=== PATIENT | female | born 1940 | race Caucasian/White ===

== ENCOUNTER 2024-03-10 22:34 | Inpatient (IN) | payer OTHER, SELFPAY ==
[2024-03-10 18:15] VITALS: BP 153/89
[2024-03-10 18:16] VITALS: BP 153/89
[2024-03-10 18:23] VITALS: BMI 17.2
[2024-03-10 19:00] VITALS: BP 146/86
--- NOTE | 2024-03-10 19:07 | ED.GENMED ---
History of Present Illness
<Janessa Treadwell MD, Resident - Last Filed: 03/10/24 22:01>
General
Chief Complaint: Fall
Source: patient
Exam Limitations: none
Time Seen by Provider: 03/10/24 18:35
Nursing documentation reviewed up to this point in time: agreed with
History of Present Illness
History of Present Illness:
83yo F with PMH multiple orthopedic surgeries/fractures, RA, COPD, AAA, bradycardia who presents to ED for left leg pain after mechanical fall. While transferring from wheelchair to desk chair, her wheelchair 'slipped out from under her' and she
fell landing on her bottom on tile floor. She is unsure if she hit her head. Not on blood thinners. She was unable to get up, and her caregiver found her on the ground upon arrival to her home. She denies any preceding symptoms including
lightheadedness, dizziness, chest pain, SOB, presyncope. Her only complaint currently is 10/10 pain in proximal left femur. Otherwise in her usual state of health. She lives alone and uses wheelchair and walker.
Past History
<Janessa Treadwell MD, Resident - Last Filed: 03/10/24 22:01>
Past History
ED Past Medical History: Arrthythmia (bradycardia), Cancer (Breast, skin), COPD, Valvular disease (mitral regurgitation, aortic stenosis/regurgitation) and Other (Rheumatoid arthritis, osteoporosis, PNA, AAA, UTI)
ED Past Surgical History: Cholecystectomy, Orthopedic (Bilateral foot reconstruction, hand surgery, knee replacement, R prox femur ORIF), Tonsilectomy and Other (L mastectomy)
Patient has exhibited threatening behavior?: No
Social History
Tobacco: Former smoker
Alcohol: Occasional
Drug: None
Personal:
Living: alone
Family History
Family History: CAD
Review of Systems
<Janessa Treadwell MD, Resident - Last Filed: 03/10/24 22:01>
Review of Systems
Constitutional: Reports no symptoms
EENT: Reports no symptoms
Respiratory: Reports cough (chronic cough, productive in AM); Denies hemoptysis or trouble breathing
Cardiac: Reports no symptoms
ABD/GI: Reports no symptoms; Denies abdominal pain, nausea, vomiting, diarrhea, constipated, bloody stools or black stools
: Reports incontinence (chronic for past 2 years); Denies dysuria
Musculoskeletal: Reports other (12/04 L femur pain); Denies edema
Skin: Reports no symptoms
Neurological: Reports no symptoms; Denies dizzy, headache or weakness
Endocrine: Reports no symptoms
Hematologic/Lymphatic: Reports no symptoms
Psychiatric: Reports no symptoms
Phy Exam
<Janessa Treadwell MD, Resident - Last Filed: 03/10/24 22:01>
General Physical Exam
General Presentation: well appearing and other (appears uncomfortable, no acute distress)
General age: appears stated age
General Skin: warm and dry
General Habitus: cachetic, elderly and frail
General Mental: alert
General Hydration: appears well hydrated
Cardiovascular Exam
Cardiovascular Exam: regular rate/rhythm, no edema, no JVD, normal peripheral pulses (dorsalis pedal pulses intact bilaterally), systolic murmur and other (port at right anterior chest wall nontender, nonerythematous)
Heart Sounds: normal
Pulmonary Exam
Pulmonary Exam: lungs clear, no respiratory distress, no crackles, no wheezing and decreased breath sounds
Oxygen Status: room air
Cough: no cough
Respirations: other (nonlabored breathing)
Gastrointestinal Exam
Gastrointestinal Exam: normal bowel sounds, non tender, soft and non distended
Neurological Exam
Neurological Exam: alert and oriented x3
Musculoskeletal Exam
Musculoskeletal Exam: other (tender to palpation L proximal femur, no palpable/visible deformity or hematoma, exam limited by pain; DP pulses intact bilat; s/p bilateral foot reconstruction surg; hands bilaterally with chronic RA changes)
Skin Exam
Skin Exam: normal color and warm/dry
Psychiatric Exam
Psychiatric Exam: normal mood/affect
Course
<Janessa Treadwell MD, Resident - Last Filed: 03/10/24 22:01>
Orders/Labs/Results
Orders:
Orders
03/10/24 19:05
CR Hip - LT w/wo Pel 2-3 Vw* Urgent
Comment:
Reason For Exam: left hip pain s/p fall
Include a pelvis x-ray?: Yes
03/10/24 19:06
CT Cervical Spine W/o Iv Contr Urgent
Comment:
Reason For Exam: fall with headstike
CT Head W/o Iv Contrast Urgent
Comment:
Reason For Exam: fall with headstike
Morphine Sulfate 4 mg IV NOW STA
03/10/24 20:04
Complete Blood Count/With Diff Urgent
Comprehensive Metabolic Panel Urgent
PTT Urgent
Prothrombin Time Urgent
03/10/24 20:13
Type+Screen Urgent
BBK Wristband Number:
03/10/24 21:15
0.9% Sodium Chloride 1000 ml [Nss] 1,000 ml IV 75 mls/hr
03/10/24 21:48
Morphine Sulfate 2 mg IV NOW STA
Abnormal Lab Results
03/10/24
20:04
WBC 14.7 H 10^3/uL
(4.8-10.8)
MCH 32.8 H pg
(27.0-31.0)
MPV 11.6 H fL
(7.4-10.4)
Abs Immat Gran (auto) 0.1 H 10^3/uL
(0-0.05)
Absolute Neuts (auto) 13.4 H 10^3/uL
(1.4-6.5)
Absolute Lymphs (auto) 0.6 L 10^3/uL
(1.2-3.4)
Neutrophils % 91.3 H %
(42.2-75.2)
Lymphocytes % 4.2 L %
(20.5-51.1)
PT 15.0 H Sec
(11.4-14.6)
APTT 72.7 H Sec
(23.4-35.0)
Sodium 133 L mmol/L
(135-145)
BUN 58 H mg/dl
(7-17)
Creatinine 1.1 H mg/dL
(0.6-1.0)
Glucose 177 H mg/dl
(70-99)
03/10/24 20:04
03/10/24 20:04
Vital Signs
Initial and Last Documented VS:
Initial Vital Signs
BP
153/89
03/10/24 18:15
Last Documented Vital Signs
Temp Pulse Resp BP Pulse Ox
97.5 F 100 16 138/92 99
03/10/24 18:27 03/10/24 18:16 03/10/24 18:16 03/10/24 21:49 03/10/24 21:49
<Oc Navarro MD - Last Filed: 03/10/24 21:49>
Orders/Labs/Results
Orders:
Orders
03/10/24 19:05
CR Hip - LT w/wo Pel 2-3 Vw* Urgent
Comment:
Reason For Exam: left hip pain s/p fall
Include a pelvis x-ray?: Yes
03/10/24 19:06
CT Cervical Spine W/o Iv Contr Urgent
Comment:
Reason For Exam: fall with headstike
CT Head W/o Iv Contrast Urgent
Comment:
Reason For Exam: fall with headstike
Morphine Sulfate 4 mg IV NOW STA
03/10/24 20:04
Complete Blood Count/With Diff Urgent
Comprehensive Metabolic Panel Urgent
PTT Urgent
Prothrombin Time Urgent
03/10/24 20:13
Type+Screen Urgent
BBK Wristband Number:
03/10/24 21:15
0.9% Sodium Chloride 1000 ml [Nss] 1,000 ml IV 75 mls/hr
03/10/24 21:48
Morphine Sulfate 2 mg IV NOW STA
Abnormal Lab Results
03/10/24
20:04
WBC 14.7 H 10^3/uL
(4.8-10.8)
MCH 32.8 H pg
(27.0-31.0)
MPV 11.6 H fL
(7.4-10.4)
Abs Immat Gran (auto) 0.1 H 10^3/uL
(0-0.05)
Absolute Neuts (auto) 13.4 H 10^3/uL
(1.4-6.5)
Absolute Lymphs (auto) 0.6 L 10^3/uL
(1.2-3.4)
Neutrophils % 91.3 H %
(42.2-75.2)
Lymphocytes % 4.2 L %
(20.5-51.1)
PT 15.0 H Sec
(11.4-14.6)
APTT 72.7 H Sec
(23.4-35.0)
Sodium 133 L mmol/L
(135-145)
BUN 58 H mg/dl
(7-17)
Creatinine 1.1 H mg/dL
(0.6-1.0)
Glucose 177 H mg/dl
(70-99)
03/10/24 20:04
03/10/24 20:04
Vital Signs
Initial and Last Documented VS:
Initial Vital Signs
BP
153/89
03/10/24 18:15
Last Documented Vital Signs
Temp Pulse Resp BP Pulse Ox
97.5 F 100 16 138/92 99
03/10/24 18:27 03/10/24 18:16 03/10/24 18:16 03/10/24 21:49 03/10/24 21:49
<Janessa Treadwell MD, Resident - Last Filed: 03/10/24 22:01>
MDM/Problems Addressed
Differential Diagnosis Includes:
L hip dislocation vs fracture s/p mechanical fall
MDM/Problems Addressed:
Will obtain hip xray and head ct given unknown head impact
Will check cbc and bmp
Morphine ordered for pain control; s/p fentanyl 60mcg via EMS en route to ED
<Janessa Treadwell MD, Resident - Last Filed: 03/10/24 22:01>
*Critical Care Note
Total Time (30-74mins, 75-104mins- exclusive of procedures): Not Applicable
<Janessa Treadwell MD, Resident - Last Filed: 03/10/24 22:01>
Update Note
Update Note:
2034: Patient sleeping comfortably after dose of morphine 4mg. On 2L NC, SpO2 94%. CBC with leukocytosis-- suspect reactive given no other si/sx infectious etiology. BMP unremarkable, Cr 1.1 appears to be at patient's baseline. Awaiting imaging.
0: xray showing left hip fracture, head/neck CT negative for acute injury. Will admit-- ortho and hospitalist aware. Updated patient at bedside. Will give additional morphine for pain management.
ED Attending Note
<Janessa Treadwell MD, Resident - Last Filed: 03/10/24 22:01>
-
Portions of this chart may have been created with voice recognition software.� Occasional wrong word or��sound alike� substitutions may have occurred due to the inherent limitations of voice recognition software.
<Oc Navarro MD - Last Filed: 03/10/24 21:49>
ED Attending Note
Patient seen and examined by attending physician: Yes
I performed a history and physical exam of patient and discussed management with resident, I reviewed resident's note and agree with documented findings and plan of care.: Yes
ED Attending Note:
I have seen and evaluated the patient with a [id number] encounter. I have spoken to the resident and involved in the medical history, the physical exam, medical decision making.
Evaluation and management service: agree unless noted differently below.
Results interpretation: agree unless noted differently below.
Focused HPI: 83-year-old female with history as documented presents to the ER for evaluation after a fall. Patient was apparently transferring out of her wheelchair into a regular chair; she says that the wheelchair slid out from underneath her and
she fell onto her left hip. She says she did hit her head (despite triage note to the contrary) but says that she did not lose consciousness. She denies any other injuries aside from significant left hip pain. She is not on any blood thinners.
Denies headache, neck pain, back pain, chest/rib pain, abdominal pain, upper extremity pain.
Physical exam: Awake alert. She is cachectic and frail. Appears uncomfortable. Hypertensive, mildly tachycardic. Head atraumatic. No cervical spine tenderness. No signs of trauma the back or flank and no tenderness of the thoracic or lumbar
spine. Her left lower extremity shortened and externally rotated. She has significant pain with any attempts at moving the left leg. She does have strong distal pulses in the left lower extremity. Rest of extremities are atraumatic. She has no
chest wall tenderness and no abdominal tenderness.
Medical Decision Makin-year-old female presents to the ER for evaluation after a fall onto her left hip while transferring from wheelchair. Injured her left hip, she does report head strike but denies any headache or any other injuries. She
is not on blood thinners. Vitals and exam as above. Her exam is concerning for left hip fracture. Labs sent off including a CBC and a CMP, coags, type and screen. Check x-ray of the hip, CT head and cervical spine. Plan likely for admission.
Control pain.
X-ray reviewed by me shows left hip fracture. Case discussed with orthopedics for consultation. Plan for admission pending CT head. Start on maintenance fluids.
CT head and cervical spine negative for any acute pathology. Clinical reassessment patient having pain once again and will provide additional pain medication. Case discussed with hospitalist for admission.
Discharge Plan
Departure
Patient Disposition: Admit
Date of Disposition: 03/10/24
Time of Disposition: 21:49
Admit to doctor: Paul
Presentation/result/management discussed w/ accepting MD/DO: Hospitalist
Discharge Problem:
Fracture of left hip
Prescriptions:
No Action
cyanocobalamin (vitamin B-12) 1,000 mcg Tablet
1,000 mcg PO DAILY Qty: 0
midodrine 5 mg Tablet
5 mg PO TID@0800,1300,1800 Qty: 0 0RF
biotin 10 mg Tablet
10 mg PO DAILY
Theragen Tablet
1 tab PO DAILY
calcium carbonate-vitamin D3 [Calcium 600 + D(3)] 600 mg-10 mcg (400 unit) Tablet
1 tab PO DAILY
Visbiome 112.5 billion cell Capsule
1 cap PO DAILY
cranberry 450 mg Tablet
450 mg PO DAILY
magnesium oxide 400 mg magnesium Tablet
400 mg PO BID
Referrals:
Eric Arshad MD [Family Provider] -
Interventions
Interventions:
*Risk Screen - Suicide Last Done: 03/10/24 18:16
*General Assessment Last Done: 03/10/24 18:16
*Neglect/Abuse Screening Last Done: 03/10/24 18:16
ED- Fall Risk Assessment Last Done: 03/10/24 20:34
*ED COVID-19 Vaccine History Last Done: 03/10/24 18:27
ED-Musculoskeletal Assessment Last Done: 03/10/24 19:08
ED- Neurological Assessment Last Done: 03/10/24 19:08
Discharge Date and Time
Print Language: HEBREW
[2024-03-10] MEDS: MORPHINE SULFATE 4 MG IV (19:17)
[2024-03-10 20:20] LABS: % Basophils 0.3 % (0-2); % Immature Granulocytes 0.4 % (0-0.5); % Lymphocytes 4.2 % (20.5-51.1); % Monocytes 3.8 % (1.7-9.3); % Neutrophils 91.3 % (42.2-75.2); Absolute Immature Granulocytes 0.1 10^3/uL (0-0.05); Absolute Lymphocytes 0.6 10^3/uL (1.2-3.4); Absolute Monocytes 0.6 10^3/uL (0.1-0.6); Absolute Neutrophils 13.4 10^3/uL (1.4-6.5); Hematocrit 40.5 % (37.0-47.0); Hemoglobin 14.2 g/dL (12.0-16.0); Mean Corp Hgb Conc. 35.1 g/dL (33.0-37.0); Mean Corpuscular Hgb 32.8 pg (27.0-31.0); Mean Corpuscular Volume 93.5 fL (81.0-99.0); Mean Platelet Volume 11.6 fL (7.4-10.4); Nucleated Red Blood Cells % 0 %; Platelet Count 159 10^3/uL (130-400); Red Blood Cell Count 4.33 10^6/uL (4.20-5.40); Red Cell Dist. Width 13.3 % (11.5-14.5); White Blood Cell Count 14.7 10^3/uL (4.8-10.8)
[2024-03-10 20:22] LABS: INR 1.14
[2024-03-10 20:24] LABS: APTT 72.7 Sec (23.4-35.0)
[2024-03-10 20:31] LABS: ALT (SGPT) 20 U/L (0-35); AST (SGOT) 31 U/L (14-36); Albumin 3.5 g/dl (3.5-5.0); Alkaline Phosphatase 86 U/L (38-126); Blood Urea Nitrogen 58 mg/dl (7-17); Carbon Dioxide 25 mmol/L (22-30); Chloride 98 mmol/L (98-107); Estimated Creatinine Clearance 23 ml/min; Glucose 177 mg/dl (70-99); Potassium 4.6 mmol/L (3.5-5.1); Sodium 133 mmol/L (135-145); Total Bilirubin 0.8 mg/dl (0.2-1.3); Total Protein 7.4 g/dl (6.3-8.2); eGFR 49.24
[2024-03-10 21:49] VITALS: BP 138/92
[2024-03-10 22:00] VITALS: BP 113/72
[2024-03-10] MEDS: MORPHINE SULFATE 2 MG IV (22:06)
[2024-03-10] MEDS: NSS 1000 IV (22:06)
--- NOTE | 2024-03-10 22:27 | HPS.HSE ---
Family Physician
-
Family Physician: Eric Arshad
Chief Complaint
-
fall
History of Present Illness
83-year-old female past medical history of mild to moderate aortic stenosis, mild to moderate eccentric aortic regurgitation, abdominal aortic aneurysm, moderate pulmonary hypertension, COPD, rheumatoid arthritis, presenting with left leg pain after
mechanical fall. While transferring from wheelchair to the chair wheelchair slipped out from under her and she fell landing on her bottom. She is unsure if she hit her head. She was unable to get up. She denies any preceding lightheadedness,
dizziness, chest pain, shortness of breath or presyncope. She complains of 10 out of pain in the proximal left femur.
She denies any recent chest pain or shortness of breath or dizziness.
She denies smoking or alcohol use.
Medical History
Past Medical History
Past Medical History: Reports Other ( mild to moderate aortic stenosis, mild to moderate eccentric aortic regurgitation, abdominal aortic aneurysm, moderate pulmonary hypertension, COPD, rheumatoid arthritis)
Past Surgical History: Reports Other (Cholecystectomy, Orthopedic (Bilateral foot reconstruction, hand surgery, knee replacement, R prox femur ORIF), Tonsilectomy and Other (L mastectomy))
Social History
Tobacco: Non-smoker
Alcohol: None
Drug: None
Family History
Family History: Not pertinent
Allergies / Home Medications
Allergies reflects when Allergies were last updated in [facility].
Home Medications with original date entered in [facility]
Allergy/Medication List:
Allergies
Allergy/AdvReac Type Severity Reaction Status Date / Time
No Known Drug Allergies Allergy Unknown Verified 05/30/22 11:03
Home Medications
cyanocobalamin (vitamin B-12) 1,000 mcg tablet 1,000 mcg PO DAILY Supplement ##0 03/14/16
midodrine 5 mg tablet 5 mg PO TID@0800,1300,1800 #0 tabs 06/06/22
Lactobac no.2-Bifidobac no.1-S. thermo 112.5 billion cell capsule (Visbiome) 1 cap PO DAILY 03/10/24
biotin 10 mg tablet 10 mg PO DAILY 03/10/24
calcium 600 mg (as carbonate)-vitamin D3 10 mcg (400 unit) tablet (Calcium 600 + D(3)) 1 tab PO DAILY 03/10/24
cranberry fruit 450 mg tablet (cranberry) 450 mg PO DAILY 03/10/24
magnesium oxide 400 mg PO BID 03/10/24
therapeutic multivitamin 1 tab PO DAILY 03/10/24
Review of Systems
-
History Source: Patient
A 12 point ROS was completed and negative except as noted: Yes
Constitutional: Reports No Symptoms
EENT: Reports No Symptoms
Respiratory: Reports No Symptoms
Cardiac: Reports No Symptoms
Abdomen/GI: Reports No Symptoms
: Reports No Symptoms
Musculoskeletal: Reports No Symptoms
Skin: Reports No Symptoms
Neurological: Reports No Symptoms
Endocrine: Reports No Symptoms
Hematologic/Lymphatic: Reports No Symptoms
Psych: Reports No Symptoms
Physical Exam
Vital Signs
Vital Signs
Temp Pulse Resp BP Pulse Ox
97.5 F 100 16 138/92 99
03/10/24 18:27 03/10/24 18:16 03/10/24 18:16 03/10/24 21:49 03/10/24 21:49
Physical Exam
General: Well Developed, Well Nourished and No Apparent Distress
HEENT: NormoCephalic, Moist mucous membranes and Atraumatic
Respiratory: Clear
Cardiac: S1/S2 and Regular Rhythm; No Murmur or Rub
GI: Soft, Non Tender, Non Distended and Normal Bowel Sounds; No Organomegaly
Rectal: Deferred by Provider
Musculoskeletal: No Clubbing, No Cyanosis and No Edema
Skin: No Rash
Neuro: Nonfocal/grossly intact
Laboratory Results
-
03/10/24 20:04
03/10/24 20:04
Laboratory Results
PT 15.0 Sec (11.4-14.6) H 03/10/24 20:04
INR 1.14 03/10/24 20:04
APTT 72.7 Sec (23.4-35.0) H 03/10/24 20:04
Total Bilirubin 0.8 mg/dl (0.2-1.3) 03/10/24 20:04
AST 31 U/L (14-36) 03/10/24 20:04
ALT 20 U/L (0-35) 03/10/24 20:04
Alkaline Phosphatase 86 U/L (38-126) 03/10/24 20:04
Data Reviewed
-
Lab Data: Labs Reviewed by me
Old Records: Reviewed
Impression/Plan
-
IMPRESSION:
PLAN:
# Ambulatory dysfunction with falls/left hip fracture
-X-ray shows fracture of the distal neck and greater trochanter of the proximal left femur mildly impacted
-CT head, cervical spine negative for acute abnormality
-Tylenol, Dilaudid for pain
-N.p.o. past midnight
-Ortho consulted
-Patient not on any blood thinners
-Mild sinus tachycardia secondary to pain, confirmed with EKG
-Patient appears well compensated without any evidence of heart failure
Mild to moderate aortic stenosis
Mild to moderate eccentric aortic regurgitation
Abdominal aortic aneurysm
Moderate pulmonary hypertension
Orthostatic hypotension
-Continue midodrine
COPD
Rheumatoid arthritis
Full code
DVT prophylaxis�SCDs
N.p.o. past midnight
[2024-03-10 23:00] VITALS: BP 91/67
[2024-03-11] VITALS (18 sets, daily range): BP systolic 79–158; BP diastolic 51–94; BMI 13.8
--- NOTE | 2024-03-11 00:10 | PTCARENOTE ---
Received pt. to 2S from ED via stretcher and pulled over to room bed. Pt. very lethargic, only able to stay awake to answer a question at a time but otherwise oriented, moaning in pain when moved then quickly falls asleep again, even and unlabored
breathing on RA, and VSS. Unable to ask the majority of admission questions at this time due to lethargy, will attempt later. Call light within reach, side rails in place, bed locked and in lowest position.
[2024-03-11 05:06] LABS: % Basophils 0.2 % (0-2); % Immature Granulocytes 0.4 % (0-0.5); % Lymphocytes 9.1 % (20.5-51.1); % Monocytes 7.3 % (1.7-9.3); Absolute Immature Granulocytes 0.1 10^3/uL (0-0.05); Absolute Lymphocytes 1.1 10^3/uL (1.2-3.4); Absolute Monocytes 0.9 10^3/uL (0.1-0.6); Absolute Neutrophils 9.7 10^3/uL (1.4-6.5); Hematocrit 36.5 % (37.0-47.0); Hemoglobin 12.4 g/dL (12.0-16.0); Mean Corpuscular Hgb 31.6 pg (27.0-31.0); Mean Corpuscular Volume 93.1 fL (81.0-99.0); Mean Platelet Volume 10.5 fL (7.4-10.4); Nucleated Red Blood Cells % 0 %; Platelet Count 155 10^3/uL (130-400); Red Blood Cell Count 3.92 10^6/uL (4.20-5.40); Red Cell Dist. Width 13.5 % (11.5-14.5); White Blood Cell Count 11.7 10^3/uL (4.8-10.8)
[2024-03-11 05:35] LABS: ALT (SGPT) 18 U/L (0-35); AST (SGOT) 27 U/L (14-36); Albumin 3.1 g/dl (3.5-5.0); Alkaline Phosphatase 75 U/L (38-126); Blood Urea Nitrogen 61 mg/dl (7-17); Calcium 9.5 mg/dl (8.4-10.2); Carbon Dioxide 25 mmol/L (22-30); Chloride 102 mmol/L (98-107); Estimated Creatinine Clearance 17 ml/min; Glucose 115 mg/dl (70-99); Potassium 5.1 mmol/L (3.5-5.1); Sodium 136 mmol/L (135-145); Total Bilirubin 0.7 mg/dl (0.2-1.3); Total Protein 6.6 g/dl (6.3-8.2); eGFR 44.36
[2024-03-11] MEDS: DILAUDID 0.25 MG IV (06:09)
--- NOTE | 2024-03-11 07:45 | CON.ORTHO ---
Consultation
-
Date/Time Consultation Requested: 03/10/2024
Date/Time Consultation Performed: 03/11/2024
Requesting Provider: Dr. Griggs
Performing Provider: Soraya Craft PA-C, for Dr. Culver
Reason for Consultation: Left hip intertroch fracture
Consultation - Orthopedics
History
HPI: This is an 83 year old female who presented to ED after sustaining a fall onto her left hip. She was attempting to transfer from her wheelchair to her desk chair when she fell directly on her left hip. She was unable to stand and it was
her caregiver who later found her on the ground. X-rays showed a left hip proximal femur fracture. She does have a h/o RA with deformity of her b/l hands. She states she uses both a wheelchair and walker and lives alone in her home. She does
have a caregiver come in. She was somewhat somnolent on exam, so some of her history was obtained through chart review. She reports being comfortable at rest. She denies any prior issues with her right hip surgery or complications with
anesthesia.
PMH: RA, COPD, AAA, bradycardia, breast cancer, skin cancer COPD, valvular disease.
PSH: Cholecystectomy, ORIF right hip, b/l foot reconstruction, hand surgery, knee replacement, left mastectomy, tonsilectomy.
Social history: Denies current tobacco use, occasional alcohol. Lives alone.
Family history: non contributory.
Review of systems: all systems reviewed and negative except for those mentioned in HPI.
Allergies / Home Medications
Allergy/AdvReac Type Severity Reaction Status Date / Time
No Known Drug Allergies Allergy Unknown Verified 05/30/22 11:03
�Medication �Instructions �Recorded
cyanocobalamin (vitamin B-12) 1,000 mcg PO DAILY Supplement ##0 03/14/16
1,000 mcg tablet
midodrine 5 mg tablet 5 mg PO TID@0800,1300,1800 #0 tabs 06/06/22
Lactobac no.2-Bifidobac no.1-S. 1 cap PO DAILY 03/10/24
thermo 112.5 billion cell capsule
(Visbiome)
biotin 10 mg tablet 10 mg PO DAILY 03/10/24
calcium 600 mg (as 1 tab PO DAILY 03/10/24
carbonate)-vitamin D3 10 mcg (400
unit) tablet (Calcium 600 + D(3))
cranberry fruit 450 mg tablet 450 mg PO DAILY 03/10/24
(cranberry)
magnesium oxide 400 mg PO BID 03/10/24
therapeutic multivitamin 1 tab PO DAILY 03/10/24
Vital Signs / Lab Results
Temp Pulse Resp BP Pulse Ox
97.6 F 93 16 139/81 100
03/11/24 07:01 03/11/24 07:01 03/11/24 07:01 03/11/24 07:01 03/11/24 07:01
03/11/24 04:38
03/11/24 04:38
Physical exam:
General: somnolent, but in NAD. Cachetic appearing. AAO x 3.
HEENT: AT/NC, neck supple.
Heart: RRR.
Lungs: Non labored breathing on room air. no audible wheezing.
left hip: TTP over lateral hip/prox femur. ROM not tested. Minimal swelling, no bruising. Leg ER. Calf soft and non tender to palpation. n/v intact.
X-rays fo the left hip on 03/10/24 shows a mildly impacted fracture of the distal neck/greater trochanter of the proximal femur
Assessment / Plan
Assessment: Left hip intertroch fracture.
Plan: Unfortunately Mendez sustained a fracture of her left hip during her fall yesterday. Treatment recommendations were discussed and our recommendation at this time is to proceed with surgical intervention in the form of a left hip ORIF with
gamma nail. Plan will be to proceed to OR today under the direction of Dr. Renner. Risks, benefits, and associated recovery process discussed with patient. Informed consent obtained as well as blood transfuson consent if necessary and placed in
patients chart. She will be NPO and NWB on LLE until surgery. IV abx personnel analyst to OR. Left hip marked as correct surgical site. All questions answered and patient was in agreement with treatment recommendations.
--- NOTE | 2024-03-11 08:41 | W.PN.UPDATE ---
Update Note
Progress Note Update
Patient with left hip intertrochanteric fracture. Patient is known to our practice status post right hip gamma nail on May 31, 2022 under the direction of Dr. Mansoor Contreras. Patient is tentatively for left hip gamma nail later today under the
direction of Dr. Samuel Renner. Surgical site has been marked.
[2024-03-11] MEDS: ProAmatine 5 MG PO ×2 (09:01→18:20)
[2024-03-11] MEDS: MAG-TAB SR 84 MG PO ×2 (09:02→20:23)
[2024-03-11] MEDS: THERAGRAN 1 TABLET PO (09:02)
[2024-03-11] MEDS: VITAMIN B-12 1000 MCG PO (09:02)
[2024-03-11] MEDS: VISBIOME 1 CAP PO (09:02)
[2024-03-11] MEDS: OSCAL 500 + D 500 MG PO (09:03)
[2024-03-11 09:36] LABS: Troponin I < 0.012 ng/ml
--- NOTE | 2024-03-11 10:36 | CON.CAR ---
Addendum entered and electronically signed by Carlos Monge MD 03/11/24 12:16:
84 yo female with mild/moderate AR and , mildly dilated ascending aorta is admitted following a mechanical fall and hip fracture. She denies any history of CP, SOB, syncope, edema. Exam with RRR, II/ systolic murmur at RUSB, no edema .EKG: NSR,
bifascicular block. Cr 1.2.
She is elevated risk due to age and frailty. Overall, she seems stable from cardiac perspective and can proceed to OR without additional cardiac testing. We will monitor on tele post op.
Original Note:
Consultation
Consultation Request
Date/Time Consultation Requested: 03/11/24 08
Date/Time Consultation Performed: 03/11/24 1030
Requesting Provider: Dr. Zuleta
Performing Provider: Kennedi CHILDS for Dr. Monge
Reason for Consultation: pre-op cardiovascular risk assessment
Medical History
-
Chief Complaint: fall with hip pain
History of Present Illness:
83 y/o female with RA (gets infusions via port), CKD3, ascending aorta dilation (details below), underweight, COPD/former smoker, hx breast CA, mild to moderate , mild to moderate AR, moderate pulmonary hypertension who is here after she fell
moving from her wheelchair to her desk chair. She tells me that her wheelchair slipped. There is left hip pain and she is seen on imaging to have a fracture. She denies any dizziness, CP, SOB, or syncope. EKG shows SR with bifascicular block. Of
note, previously after an orthopedic surgery she had hypotension and has been on midodrine as OP. She is in no distress at the time of my assessment.
Past Medical History
Past Medical History: COPD, Valvular Disease and Other (as above)
Social History
Tobacco: Former Smoker
Family History
Family History: Reviewed & Not Pertinent
Allergies / Home Medications
Allergy/AdvReac Type Severity Reaction Status Date / Time
No Known Drug Allergies Allergy Unknown Verified 05/30/22 11:03
�Medication �Instructions �Recorded �Confirmed �Type
cyanocobalamin (vitamin B-12) 1,000 mcg PO DAILY Supplement ##0 03/14/16 03/10/24 History
1,000 mcg tablet
midodrine 5 mg tablet 5 mg PO TID@0800,1300,1800 #0 tabs 06/06/22 03/10/24 Rx
Lactobac no.2-Bifidobac no.1-S. 1 cap PO DAILY Supplement 03/10/24 03/10/24 History
thermo 112.5 billion cell capsule
(Visbiome)
biotin 10 mg tablet 10 mg PO DAILY Supplement 03/10/24 03/10/24 History
calcium 600 mg (as 1 tab PO DAILY Supplement 03/10/24 03/10/24 History
carbonate)-vitamin D3 10 mcg (400
unit) tablet (Calcium 600 + D(3))
cranberry fruit 450 mg tablet 450 mg PO DAILY Supplement 03/10/24 03/10/24 History
(cranberry)
magnesium oxide 400 mg PO BID Supplement 03/10/24 03/10/24 History
therapeutic multivitamin 1 tab PO DAILY Supplement 03/10/24 03/10/24 History
Review of Systems
-
History Source: Patient
All other systems: Negative unless noted
Musculoskeletal: Other (fall with L hip pain)
Physical Exam
Vital Signs
Temp Pulse Resp BP Pulse Ox
97.6 F 101 16 134/94 100
03/11/24 07:01 03/11/24 08:46 03/11/24 07:01 03/11/24 09:01 03/11/24 07:01
Lab Results
03/11/24 04:38
03/11/24 04:38
Troponin I < 0.012 ng/ml 03/11/24 08:56
Physical Exam
General: Well Developed, No Apparent Distress and Other (underweight)
HEENT: Normocephalic and Anicteric
Respiratory: Clear and Non Labored Respirations
Cardiac: Regular Rhythm and Murmur (II/ systolic)
Musculoskeletal: No Edema
Skin: Warm and Dry
Neuro: AO x 3
Psych: Calm
Impression / Plan
-
Left hip fracture:
-this diagnosis is threat to bodily function
-plan is for left hip ORIF with gamma nail today
-pre-op cardiovascular risk assessment: patient denies any CP, SOB, dizziness, or syncope. She is not volume overloaded. EKG shows bifascicular block. No concerning cardiac symptoms. However, she is at elevated risk for surgery due to age and
deconditioning. Monitor tele, BP's, volume closely post-operatively.
Mild-moderate , AR:
-symptomatically stable
-monitor volume post-op
Ascending aortic dilation:
-has been stable
-continue to monitor as OP
Data Reviewed
-
EKG: Tracing Personally Visualized and interpreted (NSR bifasicular block)
Radiology: Report Reviewed by me (Hip XR: There is fracture of the distal neck and greater trochanter of the proximal left femur, mildly impacted. Gamma nails transfix an old fracture of the proximal right femur. Diffuse osteopenia and osseous
degenerative changes are noted.)
Medical Tests (Nuc Med, Echo etc): Report Reviewed by me (Echo 06/05/22: EF 55%. Mild to moderate aortic stenosis. Mild to moderate eccentric aortic regurgitation. Moderate pulmonary hypertension (PASP 51 mmHG). Dilated aortic root and ascending
aorta. Sinuses of Valsalva is 4.1 cm, S-T Junction is 3.6 cm, Ascending aorta is 4.0 cm. )
Labs: Labs Reviewed by me
[2024-03-11] MEDS: NSS 1000 IV ×2 (11:05→20:39)
--- NOTE | 2024-03-11 12:13 | W.PN.HOSP.TC ---
Addendum entered and electronically signed by Arjun Zuleta MD 03/11/24 16:36:
Correction CKD stage IIIa
Original Note:
Today's Communication/Plan
-
Monitor vital signs see plan
Pain control
Plan for OR today by orthopedics
N.p.o.
Assessment / Plan
Assessment / Plan
General: Well Developed, Well Nourished and No Apparent Distress
HEENT: NormoCephalic, Moist mucous membranes and Atraumatic
Respiratory: Clear
Cardiac: S1/S2 and Regular Rhythm; No Murmur or Rub
GI: Soft, Non Tender, Non Distended and Normal Bowel Sounds
Musculoskeletal: No Edema
Neuro: Nonfocal/grossly intact
Ambulatory dysfunction with falls/left hip fracture
Traumatic fracture secondary to fall
-X-ray shows fracture of the distal neck and greater trochanter of the proximal left femur mildly impacted
-CT head, cervical spine negative for acute abnormality
Pain control
NPO for left hip gamma nail
-Ortho following
-Patient not on any blood thinners
EKG noted with bifascicular block. Cardiology following for risk stratification
-Patient appears well compensated without any evidence of heart failure
CKD stage IV
Monitor
Mild to moderate aortic stenosis
Mild to moderate eccentric aortic regurgitation
Abdominal aortic aneurysm
Moderate pulmonary hypertension
Orthostatic hypotension
-Continue midodrine
COPD
Rheumatoid arthritis
Full code
DVT prophylaxis�SCDs, postop per orthopedic
Anticipated Discharge: 24 - 48 hours
Subjective/Interval History
-
Date of Service: March 11, 2024
has pain
Objective Data
-
Labs:
Laboratory Results
03/11/24
04:38
WBC 11.7 H
Hgb 12.4
Hct 36.5 L
Plt Count 155
Sodium 136
Potassium 5.1
Chloride 102
Carbon Dioxide 25
BUN 61 H
Creatinine 1.2 H
Glucose 115 H
Calcium 9.5
Total Bilirubin 0.7
AST 27
ALT 18
Alkaline Phosphatase 75
Vital Signs:
Vital Signs
Temp Pulse Resp BP Pulse Ox
97.6 F 101 16 134/94 100
03/11/24 07:01 03/11/24 08:46 03/11/24 07:01 03/11/24 09:01 03/11/24 07:01
I&O
03/10/24 03/11/24 03/12/24
06:59 06:59 06:59
Intake Total 525 / 525
Balance 525 / 525
[2024-03-11] MEDS: ProAmatine PO (13:05)
--- NOTE | 2024-03-11 14:25 | CM ---
Met with pt at bedside
Pt reports she lives alone in a 1 story home; 3 steps to enter, FF set-up. Has private care takers daily from 8-12P and 5-9P
Needs assist with ADL's, meal prep, cleaning. Ambulates with RW/has wheel chair
DME - wheel chair, rolling walker, shower chair
SNF - denies past hx
HH - current with [facility]
PCP - Eric Arshad
Pharm - [facility]
Fx left hip - for OR today for repair
PT/OT evals pend post-op
Plan - anticipate SNF vs home with VN when medically stable
--- NOTE | 2024-03-11 18:16 | PTCARENOTE ---
Received patient from PACU via bed around 1800 in stable condition. Patient drowsy but arousable. Left hip dressing intact with scant amount of drainage. Left distal lateral thigh gauze dressing CDI. Patient with +movement +sensation. Patient
reoriented to room. Call chairez in reach.
[2024-03-11] MEDS: PROTONIX 40 MG PO (18:20)
[2024-03-11] MEDS: ASPIRIN 325 MG PO (18:20)
[2024-03-11] MEDS: COLACE 100 MG PO (20:23)
[2024-03-11] MEDS: ANCEF 5 IV (22:44)
[2024-03-12] VITALS (9 sets, daily range): BP systolic 88–137; BP diastolic 62–74; PULSE 80
[2024-03-12] MEDS: ANCEF 5 IV (05:51)
--- NOTE | 2024-03-12 06:55 | W.PN.ORTHO ---
Today's Communication / Plan
-
PT/OT
Weightbearing as tolerated with walker
Aspirin/mechanical devices for DVT prophylactics
Skin clip removal 2 weeks postop
Follow-up orthopedics 1 month postop for x-ray
Discharge to care home facility (possibly VN) once medically stable
Assessment
.
Distal Motor Intact: Yes
Dressing:
Clean, dry and intact.
Plan
.
Surgery / Date: L hip Gamma Nail 03/11 Ritting
DVT Prophylaxis: Aspirin
Activity:
Out of bed.
PT/OT
Discharge Plan: SNF
Subjective
.
.:
Patient resting comfortably.
Vital Signs and Labs
.
Vital Signs and Labs:
Temp Pulse Resp BP Pulse Ox
97.4 F 96 16 88/72 95
03/12/24 03:05 03/12/24 03:05 03/12/24 03:05 03/12/24 03:05 03/12/24 03:05
PT 15.0 Sec (11.4-14.6) H 03/10/24 20:04
INR 1.14 03/10/24 20:04
[2024-03-12 07:07] LABS: Blood Urea Nitrogen 61 mg/dl (7-17); Calcium 8.8 mg/dl (8.4-10.2); Carbon Dioxide 22 mmol/L (22-30); Chloride 104 mmol/L (98-107); Estimated Creatinine Clearance 15 ml/min; Glucose 128 mg/dl (70-99); Potassium 5.2 mmol/L (3.5-5.1); Sodium 135 mmol/L (135-145); eGFR 36.87
[2024-03-12 07:22] LABS: % Basophils 0.1 % (0-2); % Immature Granulocytes 0.5 % (0-0.5); % Monocytes 5.9 % (1.7-9.3); % Neutrophils 84.5 % (42.2-75.2); Absolute Immature Granulocytes 0.1 10^3/uL (0-0.05); Absolute Lymphocytes 0.9 10^3/uL (1.2-3.4); Absolute Monocytes 0.6 10^3/uL (0.1-0.6); Absolute Neutrophils 8.9 10^3/uL (1.4-6.5); Hematocrit 29.1 % (37.0-47.0); Hemoglobin 9.7 g/dL (12.0-16.0); Mean Corp Hgb Conc. 33.3 g/dL (33.0-37.0); Mean Corpuscular Hgb 31.8 pg (27.0-31.0); Mean Corpuscular Volume 95.4 fL (81.0-99.0); Mean Platelet Volume 11.3 fL (7.4-10.4); Nucleated Red Blood Cells % 0 %; Platelet Count 122 10^3/uL (130-400); Red Blood Cell Count 3.05 10^6/uL (4.20-5.40); Red Cell Dist. Width 13.8 % (11.5-14.5); White Blood Cell Count 10.5 10^3/uL (4.8-10.8)
[2024-03-12] MEDS: OSCAL 500 + D 500 MG PO (08:21)
[2024-03-12] MEDS: VITAMIN B-12 1000 MCG PO (08:21)
[2024-03-12] MEDS: COLACE 100 MG PO ×2 (08:21→22:57)
[2024-03-12] MEDS: ASPIRIN 325 MG PO (08:21)
[2024-03-12] MEDS: THERAGRAN 1 TABLET PO (08:21)
[2024-03-12] MEDS: PROTONIX 40 MG PO (08:21)
[2024-03-12] MEDS: MAG-TAB SR 84 MG PO ×2 (08:21→22:57)
[2024-03-12] MEDS: VISBIOME 1 CAP PO (08:23)
[2024-03-12] MEDS: ProAmatine 5 MG PO ×2 (08:23→12:32)
[2024-03-12] MEDS: TYLENOL 650 MG PO (09:18)
[2024-03-12] MEDS: ULTRAM 25 MG PO (11:16)
--- NOTE | 2024-03-12 11:18 | W.PN.HOSP.TC ---
Today's Communication/Plan
-
Monitor vital signs see plan
PT/OT
Pain control
Aspirin
Continue to monitor hemoglobin
Discharge planning
Assessment / Plan
Assessment / Plan
General: Well Developed, Well Nourished and No Apparent Distress
HEENT: NormoCephalic, Moist mucous membranes and Atraumatic
Respiratory: Clear
Cardiac: S1/S2 and Regular Rhythm; No Murmur or Rub
GI: Soft, Non Tender, Non Distended and Normal Bowel Sounds
Musculoskeletal: No Edema
Neuro: Nonfocal/grossly intact
Ambulatory dysfunction with falls/left hip fracture
Traumatic fracture secondary to fall
-X-ray shows fracture of the distal neck and greater trochanter of the proximal left femur mildly impacted
-CT head, cervical spine negative for acute abnormality
Pain control
s/p left hip gamma nail
-Ortho following
Aspirin for DVT prophylaxis per Ortho
EKG noted with bifascicular block. Cardiology following for risk stratification
-Patient appears well compensated without any evidence of heart failure
CKD stage 3
baseline appears around 1.2-1.3
Monitor
Bladder scan
Anemia likely multifactorial secondary to anemia of chronic disease and acute blood loss anemia secondary to fracture and surgery
Patient also got fluids so some could be dilutional
Continue to monitor
Thrombocytopenia
Monitor
Mild to moderate aortic stenosis
Mild to moderate eccentric aortic regurgitation
Abdominal aortic aneurysm
Moderate pulmonary hypertension
Orthostatic hypotension
-Continue midodrine
COPD
Rheumatoid arthritis
Full code
DVT prophylaxis�SCDs, postop per orthopedic
PT/OT
Anticipated Discharge: Within 24 hours
Subjective/Interval History
-
Date of Service: March 12, 2024
denies nausea
Objective Data
-
Labs:
Laboratory Results
03/12/24 03/12/24
05:58 05:59
WBC 10.5
Hgb 9.7 L D
Hct 29.1 L
Plt Count 122 L D
Sodium 135
Potassium 5.2 H
Chloride 104
Carbon Dioxide 22
BUN 61 H
Creatinine 1.4 H
Glucose 128 H
Calcium 8.8
Vital Signs:
Vital Signs
Temp Pulse Resp BP Pulse Ox
97.4 F 82 16 101/63 94
03/12/24 07:10 03/12/24 07:10 03/12/24 07:10 03/12/24 08:23 03/12/24 07:10
I&O
03/11/24 03/12/24 03/13/24
06:59 06:59 06:59
Intake Total 525 / 525 340 / 340
Balance 525 / 525 340 / 340
[2024-03-12] MEDS: FLUSH (NSS) 1 FLUSH IV (11:49)
--- NOTE | 2024-03-12 12:39 | CM ---
Chart reviewed and met with pt
PT/OT recs - SNF at discharge
Spoke with pt - requesting referral be sent to [facility]
Updated pts son Tien [phone] and to obtain other choices - given Medicare.gov info as resource for options
Son reports his brother Paramjit will be visiting pt today - will leave PAC list with pt for her and sons to review and f/u with pt
Referral sent in [facility]
Will need auth
Plan - anticipate SNF when medically ready
--- NOTE | 2024-03-12 13:44 | W.PN.CD ---
Today's Communication / Plan
-
stable from cardiac perspective
please call us with additional questions
Impression / Plan
-
Left hip fracture:
-s/p left hip ORIF with gamma nail
-no cardiac complications
Mild-moderate , AR:
-no sxs
-outpatient follow up
Ascending aortic dilation:
-has been stable
-continue to monitor as outpatient
Physical Exam
Vital Signs/Labs
Vital Signs
Temp Pulse Resp BP Pulse Ox
97.3 F 76 18 102/64 99
03/12/24 12:32 03/12/24 12:32 03/12/24 12:32 03/12/24 12:32 03/12/24 12:32
03/11/24 03/12/24 03/13/24
06:59 06:59 06:59
Actual Weight 31.978 kg
03/12/24 05:59
03/12/24 05:58
PT 15.0 Sec (11.4-14.6) H 03/10/24 20:04
INR 1.14 03/10/24 20:04
APTT 72.7 Sec (23.4-35.0) H 03/10/24 20:04
LAB Results
03/11/24
08:56
Troponin I < 0.012
Physical Exam
Constitutional: No acute distress and Comfortable
EENT: Moist mucous membranes
Cardiovascular: Rhythm & rate is regular, Pedal edema is absent, JVD pressure is normal and Systolic murmur present
Respiratory: Respiratory effort normal and Lungs clear to auscul.
Neuro/Psych: AO x 3
Data Reviewed
-
Date of Service: March 12, 2024
EKG: Other (Tele: SR, no arrhythmia)
Labs: Labs Reviewed by me
--- NOTE | 2024-03-12 14:00 | PN.CDI ---
CDI
- -
CDI:
Physician Documentation Request
Admit Date: 03/10/24 22:34
Dear Doctor Song,
Please review the following and provide your response in the progress notes.
Clinical Indicators:
- 03/11 Computer Equipment Installer indicates severe protein calorie malnutrition
- Reported weight loss
- Severe fat loss over orbital
- Severe muscle loss over clavicle
Based on the above information, ASPEN criteria and your assessment, which of the following most accurately represents the patient's nutritional status?
Severe protein calorie malnutrition
Other (please specify)
Hinkley Criteria ([facility] Hospitalist 2017)
2 or more criteria must be present for either
non severe or severe malnutrition
Note that the criteria differs related to the
presence of an acute or chronic illness
Acute Illness Chronic Illness
Energy Intake Non Severe: <75% for >7 days Non Severe: <75% for >1 month
Severe: <50% for >5 days Severe: <75% for >1 month
Weight Loss Non Severe: 1-2% over 1 week Non Severe: 5% over 1 month
5% over 1 month 7.5% over 3 months
7.5% over 3 months 10% over 6 months
1 year N/A 20% over 1 year
Severe: >2% over 1 week Severe: >5% over 1 month
>5% over 1 month >7.5% over 3 months
>7.5% over 3 months >10% over 6 months
1 year N/A >20% over 1 year
Body Fat Non Severe: Mild Decrease Non Severe: Mild Loss
Severe: Moderate Decrease Severe: Severe Loss
Muscle Mass Non Severe: Mild Decrease Non Severe: Mild Loss
Severe: Moderate Decrease Severe: Severe Loss
Fluid Accumulation Non Severe: Mild Accumulation Non Severe: Mild Accumulation
Severe: Moderate to severe Severe: Moderate to severe
accumulation accumulation
Reduced Metal Turner Strength Non Severe: N/A Non Severe: N/A
Severe: Measurably reduced Severe: Measurably reduced
Additional criteria that can be used to Determine if Mild or Moderate Malnutrition (Merck Manual 2018)
Mild Moderate Severe
Albumin gm/dl <3.0 gm/dl <2.5 gm/dl <2.0 gm/dl
Pre Albumin mg/dl <15 gm/dl <10 mg/dl <5.0 mg/dl
BMI <18.5 <17 <16
Use of terms such as suspected, likely, concern for, or probable (associated with a specific diagnosis that is being evaluated, monitored, or treated as if it exists) are acceptable and can be coded in the inpatient setting, when documented at the
time of discharge.
Thank you,
Masoud Salamanca RN
CDI Specialist
Please use your independent medical judgment in providing your response.
[2024-03-12] MEDS: ProAmatine PO ×2 (16:46→19:00)
[2024-03-13 03:21] VITALS: BP 112/75
--- NOTE | 2024-03-13 05:38 | W.PN.ORTHO ---
Today's Communication / Plan
-
PT/OT
Weightbearing as tolerated with walker
Aspirin/mechanical devices for DVT prophylactics
Skin clip removal 2 weeks postop
Follow-up orthopedics 1 month postop for x-ray
Discharge to penitentiary facility (possibly [facility]) once medically stable
Orthopedic surgery will follow peripherally at this time- please reengage with questions/concerns. Dc info UTD
Assessment
.
Distal Motor Intact: Yes
Dressing:
Clean, dry and intact.
Plan
.
Surgery / Date: L hip Gamma Nail 03/11 Ritting
Activity:
Out of bed.
PT/OT
Subjective
.
.:
Patient resting comfortably.
Vital Signs and Labs
.
Vital Signs and Labs:
Temp Pulse Resp BP Pulse Ox
97.7 F 91 18 112/75 96
03/13/24 03:21 03/13/24 03:21 03/13/24 03:21 03/13/24 03:21 03/13/24 03:21
PT 15.0 Sec (11.4-14.6) H 03/10/24 20:04
INR 1.14 03/10/24 20:04
[2024-03-13] MEDS: ULTRAM 25 MG PO (05:53)
[2024-03-13 06:42] LABS: % Basophils 0.1 % (0-2); % Immature Granulocytes 0.4 % (0-0.5); % Lymphocytes 8.4 % (20.5-51.1); % Monocytes 10.3 % (1.7-9.3); % Neutrophils 80.8 % (42.2-75.2); Absolute Immature Granulocytes 0.1 10^3/uL (0-0.05); Absolute Lymphocytes 1.2 10^3/uL (1.2-3.4); Absolute Monocytes 1.5 10^3/uL (0.1-0.6); Absolute Neutrophils 11.9 10^3/uL (1.4-6.5); Hematocrit 28.3 % (37.0-47.0); Hemoglobin 9.5 g/dL (12.0-16.0); Mean Corp Hgb Conc. 33.6 g/dL (33.0-37.0); Mean Corpuscular Hgb 32.1 pg (27.0-31.0); Mean Corpuscular Volume 95.6 fL (81.0-99.0); Mean Platelet Volume 13.2 fL (7.4-10.4); Nucleated Red Blood Cells % 0 %; Platelet Count 122 10^3/uL (130-400); Red Blood Cell Count 2.96 10^6/uL (4.20-5.40); White Blood Cell Count 14.7 10^3/uL (4.8-10.8)
[2024-03-13 07:20] VITALS: BP 107/73
[2024-03-13 07:32] LABS: Blood Urea Nitrogen 67 mg/dl (7-17); Calcium 8.3 mg/dl (8.4-10.2); Carbon Dioxide 21 mmol/L (22-30); Chloride 102 mmol/L (98-107); Estimated Creatinine Clearance 12 ml/min; Glucose 99 mg/dl (70-99); Potassium 5.6 mmol/L (3.5-5.1); Sodium 133 mmol/L (135-145); eGFR 29.21
[2024-03-13] MEDS: THERAGRAN 1 TABLET PO (08:30)
[2024-03-13] MEDS: VITAMIN B-12 1000 MCG PO (08:30)
[2024-03-13] MEDS: ProAmatine 5 MG PO ×3 (08:31→16:12)
[2024-03-13] MEDS: MAG-TAB SR 84 MG PO ×2 (08:31→20:23)
[2024-03-13] MEDS: PROTONIX 40 MG PO (08:31)
[2024-03-13] MEDS: ROXICODONE 2.5 MG PO (08:31)
[2024-03-13] MEDS: OSCAL 500 + D 500 MG PO (08:32)
[2024-03-13] MEDS: VISBIOME 1 CAP PO (08:32)
[2024-03-13] MEDS: COLACE 100 MG PO ×2 (08:32→20:23)
[2024-03-13] MEDS: ASPIRIN 325 MG PO (08:32)
[2024-03-13] MEDS: LOKELMA 10 GRAM PO (08:44)
--- NOTE | 2024-03-13 12:49 | W.PN.HOSP.TC ---
Today's Communication/Plan
-
Monitor vital signs see plan
PT/OT
Pain control
Lokelma, repeat potassium later today
Updated son over the phone
Assessment / Plan
Assessment / Plan
General: Well Developed, Well Nourished and No Apparent Distress
HEENT: NormoCephalic, Moist mucous membranes and Atraumatic
Respiratory: Clear
Cardiac: S1/S2 and Regular Rhythm; No Murmur or Rub
GI: Soft, Non Tender, Non Distended and Normal Bowel Sounds
Musculoskeletal: No Edema
Neuro: Nonfocal/grossly intact
Ambulatory dysfunction with falls/left hip fracture
Traumatic fracture secondary to fall
-X-ray shows fracture of the distal neck and greater trochanter of the proximal left femur mildly impacted
-CT head, cervical spine negative for acute abnormality
Pain control
s/p left hip gamma nail
-Ortho following
Aspirin for DVT prophylaxis per Ortho
EKG noted with bifascicular block. Cardiology following for risk stratification
-Patient appears well compensated without any evidence of heart failure
LENNIE on CKD stage 3
baseline appears around 1.2-1.3; cr now 1.7
Could also be secondary to ATN given recent low blood pressure
Monitor
Bladder scan
Hyperkalemia
Lokelma
Recheck later today
Anemia likely multifactorial secondary to anemia of chronic disease and acute blood loss anemia secondary to fracture and surgery
Patient also got fluids so some could be dilutional
Continue to monitor
Thrombocytopenia
Monitor
Hyponatremia
Monitor
Mild to moderate aortic stenosis
Mild to moderate eccentric aortic regurgitation
Abdominal aortic aneurysm
Moderate pulmonary hypertension
Orthostatic hypotension
-Continue midodrine
Severe protein calorie malnutrition
COPD
Rheumatoid arthritis
Full code
DVT prophylaxis�SCDs, aspirin
PT/OT
I spent a total of 52 minutes with the patient or on the floor. More than 50% of this time involved counseling and coordination of care.
Anticipated Discharge: 24 - 48 hours
Subjective/Interval History
-
Date of Service: March 13, 2024
denies pain
Objective Data
-
Labs:
Laboratory Results
03/13/24 03/13/24
05:19 15:00
WBC 14.7 H
Hgb 9.5 L
Hct 28.3 L
Plt Count 122 L
Sodium 133 L
Potassium 5.6 H Pending
Chloride 102
Carbon Dioxide 21 L
BUN 67 H
Creatinine 1.7 H
Glucose 99
Calcium 8.3 L
Vital Signs:
Vital Signs
Temp Pulse Resp BP Pulse Ox
97.8 F 97 16 107/73 96
03/13/24 07:20 03/13/24 07:20 03/13/24 07:20 03/13/24 07:20 03/13/24 07:20
I&O
03/12/24 03/13/24 03/14/24
06:59 06:59 06:59
Intake Total 340 / 340 480 / 480
Balance 340 / 340 480 / 480
--- NOTE | 2024-03-13 14:14 | CM ---
Chart reviewed. Met with pt
Per pt son will be here to see her today - requesting SNF facilities in the [facility] to review
Given PAC list in [facility] - reports son will assist with choosing additional SNF's. [facility] is 1st choice
Will need auth
Plan - anticipate SNF when medically ready, bed and auth obtained
[2024-03-13 19:00] VITALS: BP 123/73
[2024-03-13 20:29] LABS: Potassium 4.6 mmol/L (3.5-5.1)
[2024-03-13 23:50] VITALS: BP 120/79
[2024-03-14 03:12] VITALS: BP 116/75
[2024-03-14] MEDS: TYLENOL 650 MG PO (06:25)
[2024-03-14 07:10] VITALS: BP 100/61
[2024-03-14 08:45] LABS: % Basophils 0.2 % (0-2); % Eosinophils 0.5 % (0-6); % Immature Granulocytes 0.5 % (0-0.5); % Lymphocytes 13.5 % (20.5-51.1); % Monocytes 11.3 % (1.7-9.3); Absolute Eosinophils 0.1 10^3/uL (0-0.7); Absolute Immature Granulocytes 0.1 10^3/uL (0-0.05); Absolute Lymphocytes 1.5 10^3/uL (1.2-3.4); Absolute Monocytes 1.3 10^3/uL (0.1-0.6); Absolute Neutrophils 8.2 10^3/uL (1.4-6.5); Hematocrit 27.8 % (37.0-47.0); Hemoglobin 9.4 g/dL (12.0-16.0); Mean Corp Hgb Conc. 33.8 g/dL (33.0-37.0); Mean Corpuscular Hgb 32.1 pg (27.0-31.0); Mean Corpuscular Volume 94.9 fL (81.0-99.0); Mean Platelet Volume 11.6 fL (7.4-10.4); Nucleated Red Blood Cells % 0 %; Platelet Count 134 10^3/uL (130-400); Red Blood Cell Count 2.93 10^6/uL (4.20-5.40); Red Cell Dist. Width 14.1 % (11.5-14.5); White Blood Cell Count 11.1 10^3/uL (4.8-10.8)
[2024-03-14 08:58] LABS: Blood Urea Nitrogen 62 mg/dl (7-17); Calcium 8.1 mg/dl (8.4-10.2); Carbon Dioxide 23 mmol/L (22-30); Chloride 102 mmol/L (98-107); Estimated Creatinine Clearance 14 ml/min; Glucose 87 mg/dl (70-99); Potassium 4.3 mmol/L (3.5-5.1); Sodium 134 mmol/L (135-145); eGFR 33.94
[2024-03-14] MEDS: PROTONIX 40 MG PO (09:29)
[2024-03-14] MEDS: VISBIOME 1 CAP PO (09:30)
[2024-03-14] MEDS: ASPIRIN 325 MG PO (09:30)
[2024-03-14] MEDS: VITAMIN B-12 1000 MCG PO (09:30)
[2024-03-14] MEDS: MAG-TAB SR 84 MG PO ×2 (09:30→19:51)
[2024-03-14] MEDS: THERAGRAN 1 TABLET PO (09:30)
[2024-03-14] MEDS: COLACE 100 MG PO ×2 (09:30→19:53)
[2024-03-14] MEDS: OSCAL 500 + D 500 MG PO (09:30)
[2024-03-14] MEDS: ProAmatine 5 MG PO ×3 (09:32→17:05)
[2024-03-14 11:20] VITALS: BP 109/71
[2024-03-14 11:39] VITALS: BP 109/71; PULSE 76; O2SAT 97
--- NOTE | 2024-03-14 11:40 | W.PN.HOSP.TC ---
Today's Communication/Plan
-
Monitor vital signs see plan
Pain control
MiraLAX
PT/OT
Monitor renal function
Discharge planning, needs SNF. software engineering manager aware
Assessment / Plan
Assessment / Plan
General: Well Developed, Well Nourished and No Apparent Distress
HEENT: NormoCephalic, Moist mucous membranes and Atraumatic
Respiratory: Clear
Cardiac: S1/S2 and Regular Rhythm; No Murmur or Rub
GI: Soft, Non Tender, Non Distended and Normal Bowel Sounds
Musculoskeletal: No Edema
Neuro: Nonfocal/grossly intact
Ambulatory dysfunction with falls/left hip fracture
Traumatic fracture secondary to fall
-X-ray shows fracture of the distal neck and greater trochanter of the proximal left femur mildly impacted
-CT head, cervical spine negative for acute abnormality
Pain control
s/p left hip gamma nail
-Ortho following
Aspirin for DVT prophylaxis per Ortho
EKG noted with bifascicular block. Cardiology following for risk stratification
-Patient appears well compensated without any evidence of heart failure
LENNIE on CKD stage 3
baseline appears around 1.2-1.3; cr now 1.5
Could also be secondary to ATN given recent low blood pressure
Monitor
Bladder scan
Hyperkalemia
Status post Lokelma, now improving
Anemia likely multifactorial secondary to anemia of chronic disease and acute blood loss anemia secondary to fracture and surgery
Patient also got fluids so some could be dilutional
Continue to monitor
Thrombocytopenia
Monitor
Hyponatremia
Monitor
Mild to moderate aortic stenosis
Mild to moderate eccentric aortic regurgitation
Abdominal aortic aneurysm
Moderate pulmonary hypertension
Orthostatic hypotension
-Continue midodrine
Severe protein calorie malnutrition
COPD
Rheumatoid arthritis
Full code
DVT prophylaxis�SCDs, aspirin
PT/OT recommending SNF
Anticipated Discharge: Within 24 hours
Subjective/Interval History
-
Date of Service: March 14, 2024
Denies nausea
Objective Data
-
Labs:
Laboratory Results
03/14/24
08:20
WBC 11.1 H
Hgb 9.4 L
Hct 27.8 L
Plt Count 134
Sodium 134 L
Potassium 4.3
Chloride 102
Carbon Dioxide 23
BUN 62 H
Creatinine 1.5 H
Glucose 87
Calcium 8.1 L
Vital Signs:
Vital Signs
Temp Pulse Resp BP Pulse Ox
97.5 F 95 16 109/71 97
03/14/24 11:20 03/14/24 11:20 03/14/24 11:20 03/14/24 11:20 03/14/24 11:20
I&O
03/13/24 03/14/24 03/15/24
06:59 06:59 06:59
Intake Total 480 / 480 720 / 720
Balance 480 / 480 720 / 720
[2024-03-14] MEDS: MIRALAX 17 GRAMS PO (14:21)
--- NOTE | 2024-03-14 14:43 | CM ---
CM reviewed chart and called to patient son. Additional referral sent to [facility] at patient son request, no beds available at [facility] until at least saturday per chart review. CM will continue to follow for discharge planning needs.
Plan; SNF
[2024-03-14 15:19] VITALS: BP 109/69
[2024-03-14] MEDS: SENOKOT 8.6 MG PO (22:11)
[2024-03-14] MEDS: DULCOLAX 10 MG RECTAL (22:30)
[2024-03-14 23:57] VITALS: BP 115/67
[2024-03-15] MEDS: DILAUDID 0.25 MG IV ×2 (00:33→20:21)
[2024-03-15 05:05] LABS: % Basophils 0.2 % (0-2); % Eosinophils 1.6 % (0-6); % Immature Granulocytes 0.4 % (0-0.5); % Lymphocytes 14.8 % (20.5-51.1); % Monocytes 9.7 % (1.7-9.3); % Neutrophils 73.3 % (42.2-75.2); Absolute Eosinophils 0.2 10^3/uL (0-0.7); Absolute Immature Granulocytes 0.1 10^3/uL (0-0.05); Absolute Lymphocytes 1.7 10^3/uL (1.2-3.4); Absolute Monocytes 1.1 10^3/uL (0.1-0.6); Absolute Neutrophils 8.6 10^3/uL (1.4-6.5); Hematocrit 26.7 % (37.0-47.0); Hemoglobin 8.9 g/dL (12.0-16.0); Mean Corp Hgb Conc. 33.3 g/dL (33.0-37.0); Mean Corpuscular Hgb 32.2 pg (27.0-31.0); Mean Corpuscular Volume 96.7 fL (81.0-99.0); Mean Platelet Volume 11.4 fL (7.4-10.4); Nucleated Red Blood Cells % 0 %; Platelet Count 113 10^3/uL (130-400); Red Blood Cell Count 2.76 10^6/uL (4.20-5.40); Red Cell Dist. Width 14.3 % (11.5-14.5); White Blood Cell Count 11.8 10^3/uL (4.8-10.8)
[2024-03-15 05:35] LABS: Blood Urea Nitrogen 56 mg/dl (7-17); Calcium 8.5 mg/dl (8.4-10.2); Carbon Dioxide 23 mmol/L (22-30); Chloride 102 mmol/L (98-107); Estimated Creatinine Clearance 16 ml/min; Glucose 80 mg/dl (70-99); Potassium 4.5 mmol/L (3.5-5.1); Sodium 133 mmol/L (135-145)
[2024-03-15 07:05] VITALS: BP 122/73
[2024-03-15] MEDS: ASPIRIN 325 MG PO (07:39)
[2024-03-15] MEDS: THERAGRAN 1 TABLET PO (07:39)
[2024-03-15] MEDS: VISBIOME 1 CAP PO (07:39)
[2024-03-15] MEDS: COLACE 100 MG PO ×2 (07:40→19:26)
[2024-03-15] MEDS: MAG-TAB SR 84 MG PO ×2 (07:40→19:26)
[2024-03-15] MEDS: VITAMIN B-12 1000 MCG PO (07:40)
[2024-03-15] MEDS: PROTONIX 40 MG PO (07:40)
[2024-03-15] MEDS: OSCAL 500 + D 500 MG PO (07:40)
[2024-03-15] MEDS: MIRALAX 17 GRAMS PO (07:40)
[2024-03-15] MEDS: ProAmatine 5 MG PO ×3 (07:41→16:22)
[2024-03-15 09:49] VITALS: BP 124/80; PULSE 99; O2SAT 97
[2024-03-15] MEDS: ULTRAM 25 MG PO (10:58)
--- NOTE | 2024-03-15 11:45 | W.PN.HOSP.TC ---
Today's Communication/Plan
-
Monitor vital signs see plan
Pain control
Monitor renal function
Awaiting placement
Discussed with family at bedside
Assessment / Plan
Assessment / Plan
General: Well Developed, Well Nourished and No Apparent Distress
HEENT: NormoCephalic, Moist mucous membranes and Atraumatic
Respiratory: Clear
Cardiac: S1/S2 and Regular Rhythm; No Murmur or Rub
GI: Soft, Non Tender, Non Distended and Normal Bowel Sounds
Musculoskeletal: No Edema
Neuro: Nonfocal/grossly intact
Ambulatory dysfunction with falls/left hip fracture
Traumatic fracture secondary to fall
-X-ray shows fracture of the distal neck and greater trochanter of the proximal left femur mildly impacted
-CT head, cervical spine negative for acute abnormality
Pain control
s/p left hip gamma nail
-Ortho following
Aspirin for DVT prophylaxis per Ortho
EKG noted with bifascicular block. Cardiology was following for risk stratification
-Patient appears well compensated without any evidence of heart failure
LENNIE on CKD stage 3
baseline appears around 1.2-1.3; cr now improving
Could also be secondary to ATN given recent low blood pressure
Monitor
Bladder scan
Hyperkalemia
Status post Lokelma, now resolved
Constipation
Improving
Anemia likely multifactorial secondary to anemia of chronic disease and acute blood loss anemia secondary to fracture and surgery
Patient also got fluids so some could be dilutional
Continue to monitor
Thrombocytopenia
Monitor
Hyponatremia
Monitor
Mild to moderate aortic stenosis
Mild to moderate eccentric aortic regurgitation
Abdominal aortic aneurysm
Moderate pulmonary hypertension
Orthostatic hypotension
-Continue midodrine
Severe protein calorie malnutrition
COPD
Rheumatoid arthritis
Full code
DVT prophylaxis�SCDs, aspirin
PT/OT recommending SNF. Per keycase assembler no available beds. Awaiting placement
Anticipated Discharge: Within 24 hours
Subjective/Interval History
-
Date of Service: March 15, 2024
Has some pain
Objective Data
-
Labs:
Laboratory Results
03/15/24
04:18
WBC 11.8 H
Hgb 8.9 L
Hct 26.7 L
Plt Count 113 L
Sodium 133 L
Potassium 4.5
Chloride 102
Carbon Dioxide 23
BUN 56 H
Creatinine 1.3 H
Glucose 80
Calcium 8.5
Vital Signs:
Vital Signs
Temp Pulse Resp BP Pulse Ox
97.3 F 92 16 122/73 97
03/15/24 07:05 03/15/24 07:41 03/15/24 07:05 03/15/24 07:41 03/15/24 07:05
I&O
03/14/24 03/15/24 03/16/24
06:59 06:59 06:59
Intake Total 720 / 720 2200 / 2200
Balance 720 / 720 2200 / 2200
[2024-03-15 15:00] VITALS: BP 97/68
[2024-03-15] MEDS: SENOKOT 8.6 MG PO (20:21)
[2024-03-15 23:05] VITALS: BP 134/70
[2024-03-16 06:22] LABS: % Basophils 0.1 % (0-2); % Eosinophils 1.3 % (0-6); % Immature Granulocytes 0.9 % (0-0.5); % Lymphocytes 13.2 % (20.5-51.1); % Monocytes 8.9 % (1.7-9.3); % Neutrophils 75.6 % (42.2-75.2); Absolute Eosinophils 0.2 10^3/uL (0-0.7); Absolute Immature Granulocytes 0.1 10^3/uL (0-0.05); Absolute Lymphocytes 1.6 10^3/uL (1.2-3.4); Absolute Monocytes 1.1 10^3/uL (0.1-0.6); Hematocrit 27.5 % (37.0-47.0); Hemoglobin 9.1 g/dL (12.0-16.0); Mean Corp Hgb Conc. 33.1 g/dL (33.0-37.0); Mean Corpuscular Hgb 31.7 pg (27.0-31.0); Mean Corpuscular Volume 95.8 fL (81.0-99.0); Mean Platelet Volume 12.6 fL (7.4-10.4); Nucleated Red Blood Cells % 0.3 %; Platelet Count 113 10^3/uL (130-400); Red Blood Cell Count 2.87 10^6/uL (4.20-5.40); Red Cell Dist. Width 14.5 % (11.5-14.5); White Blood Cell Count 11.9 10^3/uL (4.8-10.8)
[2024-03-16 07:00] VITALS: BP 124/75
[2024-03-16 07:06] LABS: Blood Urea Nitrogen 51 mg/dl (7-17); Calcium 8.5 mg/dl (8.4-10.2); Carbon Dioxide 27 mmol/L (22-30); Chloride 104 mmol/L (98-107); Estimated Creatinine Clearance 16 ml/min; Glucose 98 mg/dl (70-99); Potassium 4.5 mmol/L (3.5-5.1); Sodium 135 mmol/L (135-145)
[2024-03-16] MEDS: MIRALAX 17 GRAMS PO (08:19)
[2024-03-16] MEDS: OSCAL 500 + D 500 MG PO (08:19)
[2024-03-16] MEDS: VITAMIN B-12 1000 MCG PO (08:19)
[2024-03-16] MEDS: COLACE 100 MG PO (08:19)
[2024-03-16] MEDS: THERAGRAN 1 TABLET PO (08:19)
[2024-03-16] MEDS: ASPIRIN 325 MG PO (08:19)
[2024-03-16] MEDS: PROTONIX 40 MG PO (08:19)
[2024-03-16] MEDS: VISBIOME 1 CAP PO (08:19)
[2024-03-16] MEDS: MAG-TAB SR 84 MG PO (08:19)
[2024-03-16] MEDS: ProAmatine 5 MG PO ×3 (08:21→16:08)
--- NOTE | 2024-03-16 09:17 | W.PN.HOSP.TC ---
Addendum entered and electronically signed by Kelly Gomez MD 03/18/24 11:01:
pathologic fracture 2/2 osteoporosis
Original Note:
Today's Communication/Plan
-
dispo planning
Assessment / Plan
Assessment / Plan
General: Well Developed, Well Nourished and No Apparent Distress
HEENT: NormoCephalic, Moist mucous membranes and Atraumatic
Respiratory: Clear
Cardiac: S1/S2 and Regular Rhythm; No Murmur or Rub
GI: Soft, Non Tender, Non Distended and Normal Bowel Sounds
Musculoskeletal: No Edema
Neuro: Nonfocal/grossly intact
Ambulatory dysfunction with falls/left hip fracture
Traumatic fracture secondary to fall
-X-ray shows fracture of the distal neck and greater trochanter of the proximal left femur mildly impacted
-CT head, cervical spine negative for acute abnormality
-appreciate ortho, s/p left hip gamma nail on 03/11/24
-Aspirin for DVT prophylaxis per Ortho
-awaiting SNF bed
-pain control
EKG noted with bifascicular block. Cardiology was following for risk stratification
-Patient appears well compensated without any evidence of heart failure
LENNIE on CKD stage 3
baseline appears around 1.2-1.3; cr now at baseline
-possible ATN 2/2 low BP resolved
Hyperkalemia
Status post Lokelma, now resolved
Constipation
Improving
Anemia likely multifactorial secondary to anemia of chronic disease and acute blood loss anemia secondary to fracture and surgery
Patient also got fluids so some could be dilutional
Continue to monitor - stable
Thrombocytopenia
Monitor
Hyponatremia
Monitor
Mild to moderate aortic stenosis
Mild to moderate eccentric aortic regurgitation
Abdominal aortic aneurysm
Moderate pulmonary hypertension
Orthostatic hypotension
-Continue midodrine
Severe protein calorie malnutrition
COPD
Rheumatoid arthritis
Full code
DVT prophylaxis�SCDs, aspirin
PT/OT recommending SNF. Per foster care case manager no available beds. Awaiting placement
Anticipated Discharge: Within 24 hours
Subjective/Interval History
-
Date of Service: March 16, 2024
no new complaints
waiting for rehab
Objective Data
-
Labs:
Laboratory Results
03/16/24
05:46
WBC 11.9 H
Hgb 9.1 L
Hct 27.5 L
Plt Count 113 L
Sodium 135
Potassium 4.5
Chloride 104
Carbon Dioxide 27
BUN 51 H
Creatinine 1.3 H
Glucose 98
Calcium 8.5
Vital Signs:
Vital Signs
Temp Pulse Resp BP Pulse Ox
97.4 F 91 14 124/75 96
03/16/24 07:00 03/16/24 08:21 03/16/24 07:00 03/16/24 08:21 03/16/24 07:00
I&O
03/15/24 03/16/24 03/17/24
06:59 06:59 06:59
Intake Total 2200 / 2200 820 / 820
Balance 2200 / 2200 820 / 820
Review of Systems
-
History Source: Patient
All other systems: Reviewed and negative
Physical Exam
-
General: No Apparent Distress
HEENT: PERRLA
Respiratory: Clear to Auscultation; Negative Wheezes
Cardiac: Regular Rhythm and S1/S2
GI: Soft and Nontender
Musculoskeletal: No Edema
Skin: Warm and Dry; Negative Rash
Neuro: AO x 3
Psych: Calm
Data Reviewed
-
Diagnostic Radiology: Report Reviewed by me
Labs: Labs Reviewed by me
--- NOTE | 2024-03-16 09:30 | W.DS.TRANS ---
DC Summary - Client Relationship Consultant
-
Discharge Instructions:
Discharge Diagnosis/Procedures 03/11/24. POSTOP DIAGNOSIS: Left
intertrochanteric femur fracture. PROCEDURE:
Left femoral intramedullary nail.
Diet Regular
Activity As tolerated,With Walker
Driving Restrictions Not until seen by your Dr
Bathing Restrictions OK to Shower
Other Services PT,OT
Instructions:
Stand-Alone Forms:
Changes to Home Medications: Yes
Discharge Medications:
DC Medications w/original date entered in [facility]
cyanocobalamin (vitamin B-12) 1,000 mcg tablet 1,000 mcg PO DAILY Supplement ##0 03/14/16
midodrine 5 mg tablet 5 mg PO TID@0800,1300,1800 #0 tabs 06/06/22
Lactobac no.2-Bifidobac no.1-S. thermo 112.5 billion cell capsule (Visbiome) 1 cap PO DAILY Supplement 03/10/24
biotin 10 mg tablet 10 mg PO DAILY Supplement 03/10/24
calcium 600 mg (as carbonate)-vitamin D3 10 mcg (400 unit) tablet (Calcium 600 + D(3)) 1 tab PO DAILY Supplement 03/10/24
cranberry fruit 450 mg tablet (cranberry) 450 mg PO DAILY Supplement 03/10/24
magnesium oxide 400 mg PO BID Supplement 03/10/24
therapeutic multivitamin 1 tab PO DAILY Supplement 03/10/24
aspirin 325 mg tablet 325 mg PO DAILY #28 tabs 03/16/24
docusate sodium 100 mg capsule 100 mg PO BID #60 caps 03/16/24
oxycodone 5 mg tablet 2.5 mg (1/2 x 5 mg) PO Q4HPRN PRN MODERATE/SEVERE PAIN #15 tabs 03/16/24
polyethylene glycol 3350 17 gram oral powder packet 17 g PO DAILY #30 ea 03/16/24
Home Medication Changes
addition of oxy PRN, colace, miralax
asa for DVT PPx
Pending Results: No
--- NOTE | 2024-03-16 09:37 | CM ---
Addendum entered by redealizeerty 03/16/24 16:29:
Transport at 1800
Spoke with Prosper at [facility] - given auth info and transport time
Family aware of transport time
Addendum entered by redealizeerty 03/16/24 15:54:
Auth obtained
Transport to be arranged
Plan - transfer to [facility]
R - [phone]
F - [phone]
Addendum entered by redealizeerty 03/16/24 10:42:
Spoke with Prosper at [facility] - can accept but unable to accommodate RA infusion Tx
Updated son Tien
Requested PT/OT eval - will need auth
Family requesting to speak with physician - TT sent to Dr Gomez
Plan - anticipate transfer to [facility] when auth obtained
Original Note:
Medically ready for discharge
LM with Kennedi at [facility] to check bed availability
[facility] - spoke with Prosper - will have Liaison review and return call
Updated son Paramjit
Will need auth when bed obtained
Plan - anticipate SNF when bed obtained
--- NOTE | 2024-03-16 13:33 | W.DCSUMMARY ---
Discharge Summary
Discharge Data
Date of Admission: 03/10/24
Date of Discharge: 03/16/24
-
Pending Results: No
Hospital Course
Discharging Physician : Dr. Kelly Gomez
Disposition : SNF
Primary care physician : Dr. Eric Arshad
Principal Discharge diagnosis : 03/11/24: POSTOP DIAGNOSIS: Left intertrochanteric femur fracture.
PROCEDURE: Left femoral intramedullary nail.
Hospital Course :
Ms. Mendez Brand is a 83-year-old woman with past medical history of mild to moderate aortic stenosis, mild to moderate eccentric aortic regurgitation, abdominal aortic aneurysm, moderate pulmonary hypertension, COPD, rheumatoid arthritis,
presenting with left leg pain after mechanical fall.
Hip X-Ray with distal neck and greater trochanter fracture of proximal left femur, mildly impacted. She was admitted to medicine with orthopedics consulted. Cardiology consulted for clearance. She underwent left femoral intramedullary nail
procedure on 03/11/24. She was started on asa 325mg daily for DVT PPx. She worked with PT and OT and SNF recommended.
Time spent on discharge was 32 minutes.
Important imaging findings :
HIP X-RAY
FINDINGS and IMPRESSION:
There is fracture of the distal neck and greater trochanter of the proximal left femur, mildly impacted.
Gamma nails transfix an old fracture of the proximal right femur.
Diffuse osteopenia and osseous degenerative changes are noted.
HEAD CT
IMPRESSION:
No acute intracranial abnormalities.
Findings an seen compatible with diffuse cortical atrophy with nonspecific white matter changes as described above.
CERVICAL SPINE CT
IMPRESSION:
No findings to suggest recent cervical spine fracture.
Degenerative changes without significant progression.
Cannot exclude central disc protrusion at the C3-C4 level, MRI again suggested.
Procedure findings :
Discharge Plan
-
Patient Disposition: Fdc/SNF
Discharge Diagnosis/Procedures: 03/11/24. POSTOP DIAGNOSIS: Left intertrochanteric femur fracture. PROCEDURE: Left femoral intramedullary nail.
Diet: Regular
Activity: As tolerated and With Walker
Driving Restrictions: Not until seen by your Dr
Bathing Restrictions: OK to Shower
Other Services: PT and OT
Activity Restrictions/Additional Instructions:
Weightbearing as tolerated with walker
Aspirin/mechanical devices for DVT prophylactics
Skin clip removal 2 weeks postop
Follow-up orthopedics 1 month postop for x-ray
Referrals:
Eric Arshad MD [Family Provider] - in less than 1 week
Flavio Clancy MD [Active] - (f/u 2 weeks from date of surgery)
Additional Discharge Medication Instructions: New start Aspirin 325 for DVT Prophylaxis
Oxycodone as needed for pain control
Colace and Miralax for bowel regimen
Prescriptions:
New
aspirin 325 mg Tablet
325 mg PO DAILY Qty: 28 0RF
docusate sodium 100 mg Capsule
100 mg PO BID Qty: 60 0RF
polyethylene glycol 3350 17 gram Powder In Packet
17 g PO DAILY Qty: 30 0RF
oxycodone 5 mg Tablet
2.5 mg PO Q4HPRN PRN (Reason: MODERATE/SEVERE PAIN) Qty: 15 0RF
Continued
cyanocobalamin (vitamin B-12) 1,000 mcg Tablet
1,000 mcg PO DAILY Qty: 0
midodrine 5 mg Tablet
5 mg PO TID@0800,1300,1800 Qty: 0 0RF
biotin 10 mg Tablet
10 mg PO DAILY
therapeutic multivitamin Tablet
1 tab PO DAILY
calcium carbonate-vitamin D3 [Calcium 600 + D(3)] 600 mg-10 mcg (400 unit) Tablet
1 tab PO DAILY
Visbiome 112.5 billion cell Capsule
1 cap PO DAILY
cranberry 450 mg Tablet
450 mg PO DAILY
magnesium oxide 400 mg magnesium Tablet
400 mg PO BID
Discharge Orders:
Discharge Patient (As Directed); Ordered 03/16/24
Ordered By: Kelly Gomez
Discharge Date and Time
Print Language: MALTESE
[2024-03-16 15:05] VITALS: BP 103/67
--- NOTE | 2024-03-16 15:35 | CM ---
Patient accepted at [facility] NPI# [id number]
Accepting MD Dr Cates NPI# [id number]
TC to [facility]- spoke with Isra [phone]
Medicare [id number] Insurance authorization # [id number]
Approved start date 03/16/24, LCD/NRD 03/21/24
updates to p# [phone] option 5
Ambulance auth with [facility] Auth# [id number]
[2024-03-16 17:26] VITALS: BP 145/89
--- NOTE | 2024-03-17 09:12 | PN.CDI ---
CDI
- -
CDI:
Physician Documentation Request
Admit Date: 03/10/24 22:34
Dear Doctor Jason,
Please review the following and provide your response in the progress notes.
Clinical Indicators:
- Patient admit for left femur fracture
- 03/16 PN 'Traumatic fracture secondary to fall'
- 03/10 Hip xray 'Diffuse osteopenia and osseous degenerative changes'
- per H&P home meds calcium, vitamin d3, magnesium
- 04/26/2021 Dexa scan 'Osteoporosis. There has been no statistically significant interval change'
Please provide further specificity regarding the diagnosis of femur fracture:
Due to a combination of trauma and a pathological process but the trauma alone would not likely have been sufficient to cause the fracture
Pathologic due to osteoporosis
Traumatic only
Other (please specify)
Use of terms such as suspected, likely, concern for, or probable (associated with a specific diagnosis that is being evaluated, monitored, or treated as if it exists) are acceptable and can be coded in the inpatient setting, when documented at the
time of discharge.
Thank you,
Masoud Salamanca RN
CDI Specialist
Please use your independent medical judgment in providing your response.
== END 2024-03-16 17:50 | DRG 480 ==
LOC: 2 SOUTH 22:34
PROVIDERS: Internal Medicine; Orthopaedic Surgery Hand Surgery; ADMITTING PHYSICIAN Hospitalist; ATTENDING PHYSICIAN Student in an Organized Health Care Education/Training Program; CONSULT PHYSICIAN Specialist; EMERGENCY PHYSICIAN Emergency Medicine; FAMILY PHYSICIAN Family Medicine; OTHER PHYSICIAN Internal Medicine
PROC: 0QH706Z Insertion of Intramedullary Internal Fixation Device into Left Upper Femur, Open Approach (ICD-10-PCS; 2024-03-11)
DX: M80.052A Age-related osteoporosis with current pathological fracture, left femur, initial encounter for fracture (principal); E43 Unspecified severe protein-calorie malnutrition; D62 Acute posthemorrhagic anemia; J44.0 Chronic obstructive pulmonary disease with (acute) lower respiratory infection; Z68.1 Body mass index [BMI] 19.9 or less, adult; N17.9 Acute kidney failure, unspecified; S72.142A Displaced intertrochanteric fracture of left femur, initial encounter for closed fracture; I27.20 Pulmonary hypertension, unspecified; I71.40 Abdominal aortic aneurysm, without rupture, unspecified; I95.1 Orthostatic hypotension; M06.9 Rheumatoid arthritis, unspecified; N18.30 Chronic kidney disease, stage 3 unspecified; W01.0XXA Fall on same level from slipping, tripping and stumbling without subsequent striking against object, initial encounter; Z85.3 Personal history of malignant neoplasm of breast; Z87.891 Personal history of nicotine dependence; Z96.651 Presence of right artificial knee joint; Z60.2 Problems related to living alone
CPT/HCPCS: 70450; 72125; 73502; 76000; 80048; 80053; 84132; 84484; 85025; 85610; 85730; 86850; 86900; 86901; 93005; 96374; 96376; 97163; 97167; 97530; 97535; 99285; C1713

== ENCOUNTER → 2024-05-29 13:30 | Outpatient (REF) | payer OTHER, SELFPAY | LOC: RAD 13:30 | PROVIDERS: ATTENDING PHYSICIAN Family Medicine | DX: M80.00XD Age-related osteoporosis with current pathological fracture, unspecified site, subsequent encounter for fracture with routine healing (principal) | CPT/HCPCS: 77080 ==

== ENCOUNTER 2024-11-17 22:45 | Inpatient (IN) | payer OTHER, SELFPAY ==
[2024-11-17 16:58] VITALS: BMI 13.9
[2024-11-17 17:01] VITALS: BP 115/79
[2024-11-17 17:02] VITALS: BP 115/79
--- NOTE | 2024-11-17 17:36 | ED.GENMED ---
History of Present Illness
General
Chief Complaint: Cardiac Symptoms
Time Seen by Provider: 11/17/24 17:35
Nursing documentation reviewed up to this point in time: agreed with
History of Present Illness
History of Present Illness:
84-year-old female presents to the ER via EMS for evaluation of chest discomfort which she has been feeling intermittently throughout the day today. Patient states over the last several evenings she has been awakening in the middle of the night
feeling short of breath. She denies any cough or cold symptoms. No peripheral edema. She reports a feeling of indigestion over the past few days, including just prior to arrival. Patient received nitro and aspirin and route to the ER with
complete resolution of her symptoms. She denies any prior personal history of ACS. She does have a port in her right anterior chest wall for infusions related to her rheumatoid arthritis.
Past History
Past History
ED Past Medical History: Arrthythmia (bradycardia), Cancer (Breast, skin), COPD, Valvular disease (mitral regurgitation, aortic stenosis/regurgitation) and Other (Rheumatoid arthritis, osteoporosis, PNA, AAA, UTI)
ED Past Surgical History: Cholecystectomy, Orthopedic (Bilateral foot reconstruction, hand surgery, knee replacement, R prox femur ORIF), Tonsilectomy and Other (L mastectomy)
Patient has exhibited threatening behavior?: No
Social History
Tobacco: Former smoker
Alcohol: Occasional
Drug: None
Personal:
Living: alone
Family History
Family History: CAD
Review of Systems
Review of Systems
Allergies reviewed?: Yes
Phy Exam
Physical Exam
Physical Exam:
Patient is awake, alert, elderly, frail, appears in no acute distress, wearing glasses, head is NCAT, PERRL, EOMI mucous membranes moist, conjunctiva pink, heart regular rate and rhythm without murmurs or ectopy, lungs are clear to auscultation
without wheezes rales or rhonchi, port present right anterior chest wall which is clean dry and intact, no erythema, no JVD, abdomen is soft and nontender on palpation, extremities without edema, GCS is 15
Course
Orders/Labs/Results
Orders:
Orders
11/17/24 16:56
Electrocardiogram (*1) Urgent
Reason for Study: Shortness of Breath
EKG- Treatment ONCE
11/17/24 17:37
Complete Blood Count/With Diff Urgent
Comprehensive Metabolic Panel Urgent
Lipase Urgent
Pro-BNP [NT-proBNP] Urgent
Troponin I Urgent
11/17/24 18:07
CR Chest - 2 Views Urgent
Comment:
Reason For Exam: chest pain
11/17/24 19:30
Heparin Pf [Heparin Lock Flush] 500 unit IV PER PROTOCOL
Abnormal Lab Results
11/17/24
17:37
MCH 32.5 H pg
(27.0-31.0)
Plt Count 126 L 10^3/uL
(130-400)
MPV 11.2 H fL
(7.4-10.4)
Abs Immat Gran (auto) 0.1 H 10^3/uL
(0-0.05)
Absolute Neuts (auto) 7.6 H 10^3/uL
(1.4-6.5)
Absolute Monos (auto) 1.1 H 10^3/uL
(0.1-0.6)
Lymphocytes % 16.5 L %
(20.5-51.1)
Monocytes % 10.0 H %
(1.7-9.3)
BUN 76 H mg/dl
(7-17)
Creatinine 1.3 H mg/dL
(0.6-1.0)
Glucose 123 H mg/dl
(70-99)
Albumin 3.4 L g/dl
(3.5-5.0)
11/17/24 17:37
11/17/24 17:37
CBC without significant dyscrasia, significant improvement in her hemoglobin compared to prior value of 9.1 in February 2024. Electrolytes show mild elevation in BUN with similar creatinine to prior values. Initial troponin negative.
Vital Signs
Initial and Last Documented VS:
Initial Vital Signs
BP
115/79
11/17/24 17:01
Last Documented Vital Signs
Temp Pulse Resp BP Pulse Ox
98.6 F 88 16 113/76 91
11/17/24 17:02 11/17/24 19:30 11/17/24 19:30 11/17/24 18:00 11/17/24 18:30
MDM/Problems Addressed
Differential Diagnosis Includes:
Differential diagnosis to consider but not limited to ACS, CHF, pneumonia, GERD, valvular heart disease, esophageal spasm along with other etiologies considered
Chronic conditions affecting care:
Advanced age, hypotension, rheumatoid arthritis, aortic stenosis
*Radiology
Radiology exam reviewed: preliminary read by ED provider (I independently viewed and interpreted two-view chest x-ray showing mild cardiomegaly, no infiltrate)
*Pulse Oximetry
SaO2: 93
Oxygen Mode of Delivery: Room air
Patient hypoxic: no
*EKG
Interpreted by ED Provider?: Yes (I independently viewed and interpreted twelve-lead EKG showing sinus rhythm with PACs, rate 100, leftward axis, left anterior fascicular block, right bundle branch block, no ST elevation, this is an abnormal tracing
with LVH with strain pattern, worsened compared to prior from 03/11/2024)
*Validation Technician Interpretation
Rate: normal (I independently viewed and interpreted rhythm strip showing normal sinus rhythm with right bundle branch block, no ectopy)
*Critical Care Note
Total Time (30-74mins, 75-104mins- exclusive of procedures): Not Applicable
Update Note
Update Note:
Patient resting comfortably without any recurrent symptoms while in the ER. I reviewed inpatient medical records- Patient had a cardiology consultation with Dr. Monge dated 03/12/2024 while she was admitted for treatment of a hip fracture. Patient
has mild to moderate and aortic regurg. She also has a history of stable ascending aortic dilatation.
Given symptoms have been escalating over the past few days along with history of valvular disease, I am concerned that symptoms may be reflective of angina. I reviewed full patient presentation with the hospitalist who accepts patient for admission
for further care
ED Attending Note
-
Portions of this chart may have been created with voice recognition software.� Occasional wrong word or��sound alike� substitutions may have occurred due to the inherent limitations of voice recognition software.
Discharge Plan
Departure
Patient Disposition: Admit
Date of Disposition: 11/17/24
Time of Disposition: 20:19
Presentation/result/management discussed w/ accepting MD/DO: Hospitalist
Discharge Problem:
Chest pain
Prescriptions:
No Action
cyanocobalamin (vitamin B-12) 1,000 mcg Tablet
1,000 mcg PO DAILY Qty: 0
midodrine 5 mg Tablet
5 mg PO TID@0800,1300,1800 Qty: 0 0RF
biotin 10 mg Tablet
10 mg PO DAILY
therapeutic multivitamin Tablet
1 tab PO DAILY
calcium carbonate-vitamin D3 [Calcium 600 + D(3)] 600 mg-10 mcg (400 unit) Tablet
1 tab PO DAILY
Visbiome 112.5 billion cell Capsule
1 cap PO DAILY
cranberry 450 mg Tablet
450 mg PO DAILY
magnesium oxide 400 mg magnesium Tablet
400 mg PO BID
cholecalciferol (vitamin D3) [Vitamin D3] 25 mcg (1,000 unit) Tablet
25 mcg PO DAILY
Referrals:
Eric Arshad MD [Family Provider, Family Practice]
Interventions
Interventions:
*Risk Screen - Suicide Last Done: 11/17/24 17:02
*General Assessment Last Done: 11/17/24 17:02
*Neglect/Abuse Screening Last Done: 11/17/24 17:02
*ED- Fall Risk Assessment Last Done: 11/17/24 17:55
*ED COVID-19 Vaccine History Last Done: 11/17/24 17:55
ED- Pulmonary Assessment Last Done: 11/17/24 17:50
ED- Cardiac Assessment Last Done: 11/17/24 17:50
Discharge Date and Time
Print Language: CHADIAN
[2024-11-17 17:54] LABS: Hematocrit 43.8 % (37.0-47.0); Hemoglobin 15.2 g/dL (12.0-16.0); Mean Corp Hgb Conc. 34.7 g/dL (33.0-37.0); Mean Corpuscular Volume 93.8 fL (81.0-99.0); Nucleated Red Blood Cells % 0 %; Platelet Count 126 10^3/uL (130-400); Red Cell Dist. Width 13.2 % (11.5-14.5)
[2024-11-17 18:00] VITALS: BP 113/76
[2024-11-17 18:07] LABS: ALT (SGPT) 17 U/L (0-35); AST (SGOT) 27 U/L (14-36); Albumin 3.4 g/dl (3.5-5.0); Alkaline Phosphatase 55 U/L (38-126); Blood Urea Nitrogen 76 mg/dl (7-17); Calcium 9.6 mg/dl (8.4-10.2); Carbon Dioxide 29 mmol/L (22-30); Chloride 103 mmol/L (98-107); Estimated Creatinine Clearance 16 ml/min; Glucose 123 mg/dl (70-99); Lipase 289 U/L (23-300); Potassium 4.3 mmol/L (3.5-5.1); Sodium 136 mmol/L (135-145); Total Protein 6.6 g/dl (6.3-8.2); eGFR 40.05
[2024-11-17 18:19] LABS: Troponin I < 0.012 ng/ml
--- NOTE | 2024-11-17 21:44 | HPS.HSE ---
Addendum entered and electronically signed by Yousif Griggs MD 11/17/24 22:39:
This is an addendum to H&P written by Rose Wiseman on 11/17/24. �Patient seen and examined independently with [facility].
84-year-old female female past medical history of CKD 3, constipation, multifactorial anemia secondary to chronic disease/blood loss anemia, rheumatoid arthritis, mild to moderate aortic stenosis, mild to moderate eccentric aortic regurgitation,
dilated aortic root/ascending aorta, abdominal aortic aneurysm, moderate pulmonary hypertension, orthostatic hypotension, COPD, presenting with orthopnea for few weeks.
Midsternal chest pain past 3 to 4 days only at night developed chest pain during the day today. �Given nitroglycerin by EMS with improvement in pain.
Vital signs normal. On examination she has significant murmur.
Labs unremarkable apart from stable CKD creatinine 1.3, cardiac BNP of 8200. Platelets 126.� Chest x-ray shows no acute disease of the chest there appears to be mediastinal widening and enlargement of the aorta. �EKG shows sinus rhythm with
premature atrial complexes, right bundle branch block which is old. �Troponin negative. �
Concern for acute CHF exacerbation likely due to worsening valvular disease. �40 IV Lasix daily. �Check echocardiogram. �No chest pain currently. �Trend troponins. �Chest x-ray appears to show widened mediastinum however she does have history of
dilated aortic root/a ascending aorta presentation not consistent with aortic dissection. �Cardiology consulted.
Outpatient follow up for thrombocytopenia.�
Original Note:
Family Physician
-
Family Physician: Eric Arshad
Chief Complaint
-
Orthopnea times several weeks, chest pain at night x 3 to 4 days
History of Present Illness
84-year-old female from home complaining of orthopnea for a couple weeks. She reports over the past 3 to 4 days during nighttime she has woken up with midsternal chest pain relieved with Pepcid however today she developed chest pain during the day.
She called EMS who gave her nitroglycerin which took the pain away. She also reports a dry cough. On exam she has dyspnea but is satting at 95% on room air she currently denies chest pain, fever, chills, abdominal pain, nausea, vomiting,
diarrhea, urinary symptoms. She has past medical history of mild to moderate aortic stenosis, mild to moderate aortic regurg, abdominal aortic aneurysm, moderate pulmonary hypertension, COPD, RA, CKD 4, old bilateral humeral neck fractures, chronic
hypotension, chronic thrombocytopenia
Medical History
Past Medical History
Past Medical History: Reports Other ( mild to moderate aortic stenosis, mild to moderate eccentric aortic regurgitation, abdominal aortic aneurysm, moderate pulmonary hypertension, COPD, rheumatoid arthritis)
Additional Past Medical History:
mild to moderate aortic stenosis
mild to moderate aortic regurg
abdominal aortic aneurysm
moderate pulmonary hypertension
COPD
RA
CKD 4
old bilateral humeral neck fractures
chronic hypotension
Past Surgical History: Reports Other (Cholecystectomy, Orthopedic (Bilateral foot reconstruction, hand surgery, knee replacement, R prox femur ORIF), Tonsilectomy and Other (L mastectomy))
Social History
Tobacco: Non-smoker
Alcohol: None
Drug: None
Personal: Single
Family History
Family History: Not pertinent
Allergies / Home Medications
Allergies reflects when Allergies were last updated in [facility].
Home Medications with original date entered in [facility]
Allergy/Medication List:
Allergies
Allergy/AdvReac Type Severity Reaction Status Date / Time
No Known Drug Allergies Allergy Unknown Verified 11/17/24 17:01
Home Medications
cyanocobalamin (vitamin B-12) 1,000 mcg tablet 1,000 mcg PO DAILY Supplement ##0 03/14/16
midodrine 5 mg tablet 5 mg PO TID@0800,1300,1800 #0 tabs 06/06/22
Lactobac no.2-Bifidobac no.1-S. thermo 112.5 billion cell capsule (Visbiome) 1 cap PO DAILY Supplement 03/10/24
biotin 10 mg tablet 10 mg PO DAILY Supplement 03/10/24
calcium 600 mg (as carbonate)-vitamin D3 10 mcg (400 unit) tablet (Calcium 600 + D(3)) 1 tab PO DAILY Supplement 03/10/24
cranberry fruit 450 mg tablet (cranberry) 450 mg PO DAILY Supplement 03/10/24
magnesium oxide 400 mg PO BID Supplement 03/10/24
therapeutic multivitamin 1 tab PO DAILY Supplement 03/10/24
cholecalciferol (vitamin D3) 25 mcg (1,000 unit) tablet (Vitamin D3) 25 mcg PO DAILY 11/17/24
Review of Systems
-
History Source: Patient
A 12 point ROS was completed and negative except as noted: Yes
Constitutional: Denies Fever or Chills
EENT: Denies Sore Throat or Runny Nose
Respiratory: Reports Cough (Dry) and Trouble Breathing (Orthopnea times few weeks)
Cardiac: Reports Chest Pain (Midsternal at night x 3 to 4 days); Denies Diaphoresis, Palpitations or Syncope
Abdomen/GI: Denies Abdominal Pain, Nausea, Vomiting, Diarrhea, Constipated, Bloody Stools or Black Stools
: Denies Dysuria, Frequency, Flank Pain, Incontinence, Difficulty Voiding or Urgency
Musculoskeletal: Denies Joint Pain or Edema
Skin: Denies Itching or Rash
Neurological: Denies Dizzy, Headache or Weakness
Endocrine: Reports No Symptoms
Hematologic/Lymphatic: Reports No Symptoms
Psych: Reports Calm
Physical Exam
Vital Signs
Vital Signs
Temp Pulse Resp BP Pulse Ox
98.6 F 88 16 113/76 91
11/17/24 17:02 11/17/24 19:30 11/17/24 19:30 11/17/24 18:00 11/17/24 18:30
Physical Exam
General: Cachectic; No Pain, Fever or Chills
HEENT: NormoCephalic, Anicteric, PERRLA, [place] Conjunctivae and No Ptosis
Respiratory: Clear and Other (Dyspnea at rest); No Wheezes, Rales or Rhonchi
Cardiac: S1/S2, Regular Rhythm and Murmur (3/6 systolic); No Rub, Gallop or Peripheral Edema
Breast: Deferred by me
GI: Soft, Non Tender, Non Distended, Normal Bowel Sounds and No Hepatosplenomegaly
Rectal: Deferred by Provider
Genito-urinary: Deferred by me
Musculoskeletal: No Clubbing, No Cyanosis and No Edema
Skin: Warm and Dry; No Rash
Neuro: AO x 3, No Motor Deficits, Nonfocal/grossly intact, Cranial Nerves Intact and No Sensory Deficits; No Slurred Speech, Facial Droop, Tremors or Sedated
Laboratory Results
-
11/17/24 17:37
11/17/24 17:37
Laboratory Results
Total Bilirubin 0.6 mg/dl (0.2-1.3) 11/17/24 17:37
AST 27 U/L (14-36) 11/17/24 17:37
ALT 17 U/L (0-35) 11/17/24 17:37
Alkaline Phosphatase 55 U/L (38-126) 11/17/24 17:37
Troponin I < 0.012 ng/ml 11/17/24 17:37
Lipase 289 U/L (23-300) 11/17/24 17:37
Impression/Plan
-
Impression/plan:
Admit to telemetry
#Acute dyspnea secondary to acute heart failure vs worsening valvular disease
BNP 8280
95% RA
-Lasix 40 mg now
- Consult CBC cardiology
- 2D echo in a.m.
CXR: No acute disease of the chest moderate cardiomegaly new
2D echo 06/05/2022: EF 55%, normal LV S LVSF, no wall abnormality, mild to moderate aortic stenosis, mild to moderate aortic regurg. Moderate pulm HTN, dilated aortic root 4.1 cm and ascending aorta 3.6 cm,
moderate pulm HTN PASP 51 mmHg
#Chest pain Unclear etiology
Troponin<0.012 will trend
#CKD 4
Creat 1.3 CrCl 16 appears near baseline
#Chronic thrombocytopenia unclear
Plt 126 appears baseline
#Chronic hypotension
BP 113/76
Continue midodrine 5 mg 3 times daily
#Mild to moderate aortic stenosis
Mild to moderate aortic regurg
#Abdominal aortic aneurysm(dilated aortic root 4.1 cm and ascending aorta 3.6 cm)
#Moderate pulmonary hypertension
#COPD-no acute exacerbation
# RA
-Patient receives IV unknown medication in every 2 months
#old bilateral humeral neck fractures-continue calcium plus D
#Cachexia�BMI 13.9 kg
Consult dietary
DVT prophylaxis
Full code
[2024-11-17 21:51] VITALS: BP 124/86
[2024-11-17 22:00] VITALS: BP 138/99
[2024-11-17] MEDS: NSS (PRESERVATIVE FREE) 8 ML IV (22:37)
[2024-11-17] MEDS: PEPCID 20 MG IV (22:37)
[2024-11-17] MEDS: LASIX 40 MG IV (22:39)
[2024-11-17 23:00] VITALS: BP 146/80
[2024-11-18] VITALS (7 sets, daily range): BP systolic 123–160; BP diastolic 80–98; BMI 13.7
[2024-11-18 00:15] LABS: Troponin I < 0.012 ng/ml
[2024-11-18 06:26] LABS: Hematocrit 49.1 % (37.0-47.0); Hemoglobin 17.0 g/dL (12.0-16.0); Mean Corp Hgb Conc. 34.6 g/dL (33.0-37.0); Mean Corpuscular Volume 94.1 fL (81.0-99.0); Nucleated Red Blood Cells % 0 %; Platelet Count 120 10^3/uL (130-400); Red Cell Dist. Width 13.2 % (11.5-14.5)
[2024-11-18 06:58] LABS: ALT (SGPT) 19 U/L (0-35); AST (SGOT) 30 U/L (14-36); Albumin 3.7 g/dl (3.5-5.0); Alkaline Phosphatase 63 U/L (38-126); Blood Urea Nitrogen 70 mg/dl (7-17); Calcium 10.2 mg/dl (8.4-10.2); Carbon Dioxide 30 mmol/L (22-30); Chloride 102 mmol/L (98-107); Estimated Creatinine Clearance 14 ml/min; Glucose 89 mg/dl (70-99); HDL Cholesterol 77 mg/dl; LDL Cholesterol, Calculated 67 mg/dl; Magnesium 2.2 mg/dl (1.6-2.3); Potassium 3.9 mmol/L (3.5-5.1); Sodium 139 mmol/L (135-145); Total Protein 7.1 g/dl (6.3-8.2); Troponin I < 0.012 ng/ml; Very Low Density Lipoprotein 23 mg/dl (0-30); eGFR 36.64
--- NOTE | 2024-11-18 08:25 | CON.CAR ---
Addendum entered and electronically signed by Dimas Loomis MD 11/18/24 11:20:
I saw and examined the patient.
The CPC's note was reviewed and I agree with the note.
Comment:
84-year-old female with rheumatoid arthritis, CKD 3, aortic regurgitation, aortic stenosis, pulmonary hypertension, and thoracic ascending aortic aneurysm who presents with several weeks of shortness of breath. She reports symptoms are worse with
laying down at night, not necessarily with exertion. She has occasional chest pain while sleeping that resolves with antacids. She denies chest discomfort with exertion, dizziness, lightheadedness, or syncope. Of note, she had a 40 pound weight
loss over the past 1.5 years. 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 No family in the area. She is not able to do anything that requires prolonged standing or using both of her arms due to poor
balance. She attributes this to 2 hip fractures. Has not been the same since.
Physical exam: Frail, elderly appearing woman, RRR, systolic murmur, clear lungs bilaterally with decreased breath sounds at the bases, no lower extremity edema
TTE 11/14/2024: LVEF 30-35%, low-flow low gradient aortic stenosis (peak/mean 30/19 mmHg, SERA 0.9 cm�), at least moderate aortic regurgitation, moderate MR, SOV 4.1 cm, TAA 3.8 cm, small pericardial effusion
HFrEF: New diagnosis this admission. Unclear etiology. Possibly ischemic but I would opt for conservative management in this frail 84-year-old. No plans for ischemic evaluation. I am not sure how much room we will have for GDMT. She is
currently on midodrine 5 mg 3 times daily. Blood pressures here have been normal to hypertensive at times. I reviewed recent PCP visits at which BP was normal. I would like her to stop the midodrine and trend blood pressures. Once we see how BPs
are off of midodrine we can reevaluate for GDMT. In terms of her volume status, she feels better after 1 dose of IV diuresis. She would like to go home. No plan to discharge on p.o. diuretics given her severe and frailty.
Low-flow low gradient aortic stenosis: Likely severe based on aortic valve area. We briefly discussed possible interventions and she would be interested in TAVR. She is very frail and am not sure if she would be a good candidate for this. We will
discuss further at her outpatient follow-up.
Original Note:
Consultation
Consultation Request
Date/Time Consultation Requested: 11/17/24 230
Date/Time Consultation Performed: 11/18/24 0830
Requesting Provider: Rose Wiseman NP
Performing Provider: Kennedi CHILDS for Dr. Perea
Reason for Consultation: CHF
Medical History
-
Chief Complaint: SOB
History of Present Illness:
84 y/o female with RA, CKD3, 4.1 cm thoracic ascending aortic aneurysm, 3.9 cm descending thoracic aneurysm with intraluminal thrombus, mild to moderate and AR, moderate pulmonary hypertension, bifascicular block, underweight, COPD (per previous
chart review), and hx breast cancer who is here for evaluation of SOB, which has been worsening over 3-4 weeks. She also wakes up with chest discomfort at night, which resolves with antacid. Apparently she had CP with EMS as well and was given
nitro. All symptoms worse with laying. Trop is normal. EKG is stable. BNP elevated. Of note and of concern, she reports 40 lbs weight loss over months. She has seen her PCP for this. She has no edema. She is being diuresed. She is in no distress at
the time of my assessment.
Past Medical History
Past Medical History: Cancer, COPD, Valvular Disease and Other (as above)
Social History
Tobacco: Non-Smoker
Family History
Family History: Reviewed & Not Pertinent
Allergies / Home Medications
Allergy/AdvReac Type Severity Reaction Status Date / Time
No Known Drug Allergies Allergy Unknown Verified 11/17/24 17:01
�Medication �Instructions �Recorded �Confirmed �Type
cyanocobalamin (vitamin B-12) 1,000 mcg PO DAILY Supplement ##0 03/14/16 11/17/24 History
1,000 mcg tablet
midodrine 5 mg tablet 5 mg PO TID@0800,1300,1800 #0 tabs 06/06/22 11/17/24 Rx
Lactobac no.2-Bifidobac no.1-S. 1 cap PO DAILY Supplement 03/10/24 11/17/24 History
thermo 112.5 billion cell capsule
(Visbiome)
biotin 10 mg tablet 10 mg PO DAILY Supplement 03/10/24 11/17/24 History
calcium 600 mg (as 1 tab PO DAILY Supplement 03/10/24 11/17/24 History
carbonate)-vitamin D3 10 mcg (400
unit) tablet (Calcium 600 + D(3))
cranberry fruit 450 mg tablet 450 mg PO DAILY Supplement 03/10/24 11/17/24 History
(cranberry)
magnesium oxide 400 mg PO BID Supplement 03/10/24 11/17/24 History
therapeutic multivitamin 1 tab PO DAILY Supplement 03/10/24 11/17/24 History
cholecalciferol (vitamin D3) 25 25 mcg PO DAILY 11/17/24 11/17/24 History
mcg (1,000 unit) tablet (Vitamin
D3)
Review of Systems
-
History Source: Patient
All other systems: Negative unless noted
Constitutional: Weight Loss
Respiratory: Trouble Breathing
Cardiac: Chest Pain
Physical Exam
Vital Signs
Temp Pulse Resp BP Pulse Ox
98.1 F 52 17 147/89 97
11/18/24 07:22 11/18/24 07:22 11/18/24 07:22 11/18/24 07:22 11/18/24 07:22
Lab Results
11/18/24 05:53
11/18/24 05:53
Troponin I < 0.012 ng/ml 11/18/24 05:53
Fto-U-Fqehtlfaatn Pept 8280 pg/ml 11/17/24 17:37
Physical Exam
General: No Apparent Distress and Other (underweight)
HEENT: Normocephalic and Anicteric
Respiratory: Non Labored Respirations and Other (diminished lung sounds)
Cardiac: Regular Rhythm and Murmur (II/ systolic murmur)
Musculoskeletal: No Edema
Skin: Warm and Dry
Neuro: AO x 3
Psych: Calm
Impression / Plan
-
SOB, CP:
-BNP elevated, known valvular disease and pulm HTN- likely component of acute CHF (type unknown, though last EF normal)
-obtain echo
-continue IV diuresis and monitor response; this requires intensive monitoring
-trops normal, EKG normal. H2 kristen added.
Mild to moderate and AR (echo 2022):
-echo being updated
Weight loss, significant:
-reports baseline weight 110 lbs and over months she is now 70 lbs. She is eating, but doesn't have much of an appetite.
-w/u/management per primary team
-of note, she reports she has been looking into this with her PCP as OP
Ascending aortic dilation:
-echo pending
-can consider other imaging if needed as well
Bifascicular block:
-noted in February 2024, stable
Data Reviewed
-
EKG: Tracing Personally Visualized and interpreted (SR with bifasicular block)
Radiology: Report Reviewed by me (CXR: No acute disease of the chest. If concerned of aortic dissection, chest CT with IV contrast recommended. Moderate cardiomegaly. New. )
Medical Tests (Nuc Med, Echo etc): Report Reviewed by me (Echo 06/05/22: Normal biventricular size and systolic function without regional wall motion abnormality. Mild to moderate aortic stenosis. Mild to moderate eccentric aortic
regurgitation. Moderate pulmonary hypertension. Dilated aortic root and ascending aorta. )
Labs: Labs Reviewed by me
[2024-11-18] MEDS: HEPARIN 5000 UNITS SC (09:03)
[2024-11-18] MEDS: VITAMIN B-12 1000 MCG PO (09:03)
[2024-11-18] MEDS: THERAGRAN 1 TABLET PO (09:03)
[2024-11-18] MEDS: MAGNESIUM OXIDE 400 MG PO (09:03)
[2024-11-18] MEDS: VISBIOME 1 CAP PO (09:03)
--- NOTE | 2024-11-18 13:24 | W.DS.TRANS ---
DC Summary - [facility] [employer]
-
Discharge Instructions:
Discharge Diagnosis/Procedures Acute CHF
Severe
Diet 2 Gram Sodium
Instructions:
Stand-Alone Forms:
Changes to Home Medications: Yes
Discharge Medications:
DC Medications w/original date entered in [facility]
cyanocobalamin (vitamin B-12) 1,000 mcg tablet 1,000 mcg PO DAILY Supplement ##0 03/14/16
Lactobac no.2-Bifidobac no.1-S. thermo 112.5 billion cell capsule (Visbiome) 1 cap PO DAILY Supplement 03/10/24
biotin 10 mg tablet 10 mg PO DAILY Supplement 03/10/24
calcium 600 mg (as carbonate)-vitamin D3 10 mcg (400 unit) tablet (Calcium 600 + D(3)) 1 tab PO DAILY Supplement 03/10/24
cranberry fruit 450 mg tablet (cranberry) 450 mg PO DAILY Supplement 03/10/24
magnesium oxide 400 mg PO BID Supplement 03/10/24
therapeutic multivitamin 1 tab PO DAILY Supplement 03/10/24
cholecalciferol (vitamin D3) 25 mcg (1,000 unit) tablet (Vitamin D3) 25 mcg PO DAILY 11/17/24
Home Medication Changes
Midodrine stepped
Pending Results: No
--- NOTE | 2024-11-18 16:03 | CM ---
Patient seen at bedside
IA completed
Lives alone, but has a 24hour live in private caregiver. In a 1 story home, [address]
Plof: Independent with walker
DME: Walker, wheelchair, shower chair, grab bars
States current with [facility] for PT
called [facility] & spoke with Brianne, referral [facility] in [facility]
PCP: Eric Arshad
PLAN: Home, with [facility]
fax #: [phone]
niece to transport
== END 2024-11-18 16:16 | disposition home health service (06) | DRG 292 ==
LOC: 3 WEST ACU 22:45
PROVIDERS: Clinical Nurse Specialist Family Health; ADMITTING PHYSICIAN Hospitalist; ATTENDING PHYSICIAN Internal Medicine; CONSULT PHYSICIAN Student in an Organized Health Care Education/Training Program; EMERGENCY PHYSICIAN Emergency Medicine; FAMILY PHYSICIAN Family Medicine
DX: I50.21 Acute systolic (congestive) heart failure (principal); Z68.1 Body mass index [BMI] 19.9 or less, adult; I35.2 Nonrheumatic aortic (valve) stenosis with insufficiency; N18.30 Chronic kidney disease, stage 3 unspecified; D63.1 Anemia in chronic kidney disease; M06.9 Rheumatoid arthritis, unspecified; J44.9 Chronic obstructive pulmonary disease, unspecified; I27.20 Pulmonary hypertension, unspecified; D69.6 Thrombocytopenia, unspecified; I95.89 Other hypotension; Z96.651 Presence of right artificial knee joint; Z90.12 Acquired absence of left breast and nipple; Z87.891 Personal history of nicotine dependence; Z85.3 Personal history of malignant neoplasm of breast; M81.0 Age-related osteoporosis without current pathological fracture; R63.6 Underweight; Z79.899 Other long term (current) drug therapy
CPT/HCPCS: 71046; 80053; 80061; 83690; 83735; 83880; 84484; 85025; 93005; 93306; 96374; 97163; 97530; 99285